=== PATIENT | female | born 1985 ===

== ENCOUNTER 2024-10-13 17:37 | Outpatient (REF) | payer MEDICARE, MEDICAID, SELFPAY ==
[2024-10-13 17:53] LABS: MANUAL DIFF FLAG NO
--- OUTSIDE RECORDS SUMMARY | 2024-10-13 17:56 | XMS_ITS | Clinical Summary ---
Author Organization [facility] Address [address] [place] [address] Care Team Providers Care Airport Planner Name Role Phone Jake Red MD Primary Care Provider Allergies Active Allergy Reactions Criticality Noted Date Comments Adhesive Rash Low 12/30/2018 Silk tape allergy. Paper tape is OK. Aspirin Other (see comments) 03/03/2013 Burning sensation Burning sensation burning sensation Cephalosporins Rash 03/28/2007 Haloperidol Delirium 11/07/2021 Iodinated Contrast Media Anaphylaxis High 10/05/2018 Flushing, warmth, hives. No anaphylaxis. Metoclopramide Anxiety,Other (see comments) 06/09/2010 REGLAN(METOCLOPRAMI DE RESIN): Feeling of apprehension REGLAN(METOCLOPRAMI DE RESIN): Feeling of apprehension Akathisia Oxycodone Nausea And Vomiting 10/22/2017 Peanut Anaphylaxis High 01/07/2006 Prochlorperazine Delirium,Anxiety,Ot her (see comments) 06/09/2010 COMPAZINE(PROCHLORP ERAZINE MESYLATE): Feeling of apprehension Other reaction(s): Feeling of apprehension COMPAZINE(PROCHLORP ERAZINE MESYLATE): Feeling of apprehension Akathisia TOLERATES PROMETHAZINE Metoclopramide Hcl Delirium 11/14/2023 Sodium Ferric Gluconate Complex Swelling High 10/26/2020 Pt had hand swelling and c/o chest pain with infusion Tree Nut Anaphylaxis High 06/12/2010 Tree Nuts Anaphylaxis High 06/17/2014 TREE NUTS 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 4 Active carvediloL (COREG) 6.25 mg tablet 6.25 mg by feeding tube route 2 times daily. 4 Active cloNIDine (CATAPRES-TTS) 0.3 mg/[address] 2 patches on the skin every 7 days. 4 Active cyclobenzaprin e (FLEXERIL) 10 mg tablet Take 10 mg by mouth 3 times daily as needed. 4 Active darbepoetin ravin-polysorba te (ARANESP) 200 mcg/mL injection Inject 200 mcg under the skin every 14 days. Last dose 11/12 4 Active EPINEPHrine (EPIPEN) 0.3 mg/0.3 mL injection syringe Inject 0.3 mg into the shoulder, thigh, or buttocks muscle as directed once daily as needed. 3 Active furosemide (LASIX) 10 mg/mL injection Infuse 10 mg intravenously daily as needed (weight gain). 4 Active gabapentin (NEURONTIN) 250 mg/5 mL solution Take 900 mg by j-tube 3 times a day. Active gentamicin 40 mg/mL injection Infuse intravenously once a day. For CVC 4 Active immune globulin, human 10% (10 g/100 mL) solution Infuse 25 g intravenously per week. mondays 3 Active montelukast (SINGULAIR) 10 mg tablet Take 10 mg by mouth nightly. 4 Active nortriptyline (PAMELOR) 50 mg capsule Take 50 mg by mouth nightly. 4 Active omalizumab 150 mg/mL syringe Inject 300 mg under the skin every 30 days. 4 Active ondansetron (ZOFRAN) 4 mg/2 mL injection Infuse 4 mg intravenously every 4 hours as needed for vomiting or nausea. 4 Active sulfamethoxazo le-trimethopri m (BACTRIM SS) 400-80 mg tablet 1 tablet by feeding tube route daily. 4 Active SUMAtriptan (IMITREX) 100 mg tablet 100 mg by j-tube route 2 times a day as needed for migraine. 4 Active traZODone (DESYREL) 100 mg tablet 200 mg by j-tube route nightly. 4 Active tiZANidine (ZANAFLEX) 4 mg tablet 8 mg by j-tube route once daily as needed for muscle spasms. 4 Active vancomycin 500 mg injection Infuse intravenously once a day. For cvc 4 Active venlafaxine (EFFEXOR) 75 mg tablet 75 mg by per J tube route 3 times daily. 4 Active verapamiL (CALAN) 40 mg tablet 40 mg by j-tube route 3 times daily. 4 Active albuterol 2.5 mg/0.5 mL (0.5%) nebulizer solution Inhale 2.5 mg by mouth 4 times a day as needed for wheezing or shortness of breath. Active NON FORMULARY Apply topically to the affected area 3 times a day. Captopril 1% topical solution 4-10 clicks Active busPIRone (BUSPAR) 10 mg tablet Take 20 mg by mouth 3 times a day. Active lisinopriL (PRINIVIL,ZEST RIL) 20 mg tablet Take 20 mg by mouth once a day. 4 Active micafungin 100 mg in 0.9% NaCl 100 mL Infuse 100 mg intravenously every 24 hours. 4 Active Active Problems Problem Noted Date Diagnosed Date Fungemia 11/16/2023 Assessment & Plan (11/24/2023 1:13 AM EDT): Admission blood cultures (11/13) with julieta dubliniensis in 1/4 bottles. No vegetations noted on TTE 11/20/23 with EF 39%. ID recommended reaching out to ophtho for endopthalmitis rule out; per ophtho, continue to monitor and re-engage them if she has vision changes. - See sepsis section On Transfer: - Consider ophtho consult for endophthalmitis rule out Assessment & Plan (11/23/2023 7:50 AM EDT): Admission blood cultures (11/13) now with yeast in 1/4 bottles. No vegetations noted on TTE 11/20/23 with EF 39% - See sepsis section - ID recommended reaching out to ophtho for endopthalmitis rule out; per ophtho, continue to monitor and re-engage them if she has vision changes Assessment & Plan (11/22/2023 6:52 PM EDT): Admission blood cultures (11/13) now with yeast in 1/4 bottles. No vegetations noted on TTE 11/20/23 with EF 39% - See sepsis section - ID recommended reaching out to ophtho for endopthalmitis rule out; per ophtho, continue to monitor and re-engage them if she has vision changes Assessment & Plan (11/21/2023 4:17 PM EDT): Admission blood cultures (11/13) now with yeast in 1/4 bottles. No vegetations noted on TTE 11/20/23 with EF 39% - See sepsis section - ID recommended reaching out to ophtho for endopthalmitis rule out; per ophtho, continue to monitor and re-engage them if she has vision changes Assessment & Plan (11/20/2023 6:31 PM EDT): Admission blood cultures (11/13) now with yeast in 1/4 bottles. No vegetations noted on TTE. - See sepsis section - ID recommended reaching out to ophtho for endopthalmitis rule out; per ophtho, continue to monitor and re-engage them if she has vision changes - TTE done 11/20/23 - EF 39% - No vegetations Assessment & Plan (11/19/2023 4:17 PM EDT): Admission blood cultures (11/13) now with yeast in 1/4 bottles. - See sepsis section - ID recommended reaching out to ophtho for endopthalmitis rule out; per ophtho, continue to monitor and re-engage them if she has vision changes Assessment & Plan (11/18/2023 9:24 PM EDT): Admission blood cultures (11/13) now with yeast in 1/4 bottles. - See sepsis section Assessment & Plan (11/17/2023 7:24 PM EDT): Admission blood cultures (11/13) now with yeast in 1/4 bottles. - See sepsis section Assessment & Plan (11/16/2023 8:10 PM EDT): Admission blood cultures (11/13) now with yeast in 1/4 bottles. - See sepsis section MEREDITH (dyspnea on exertion) 11/15/2023 Overview (11/15/2023): per note of Dr Meier on 05/18/2019 with the etiology possibly being multifactorial (deconditioning, LV dysfunction, anemia, recurrent infections, poor nutrition) . Gastroesophageal reflux disease 11/15/2023 Overview (11/15/2023): Occasional nighttime symptoms on PPI. Hypogammaglobulinemia 11/15/2023 Irritable bowel syndrome 11/15/2023 Overview (11/15/2023): multiple jejunostomy tube revisions for chronic bowel dysmotility, s/p ex lap for lysis of adhesions , revision J tube secondary to to leak extensive amounts of bile out of her jejunostomy tract. No c/o pain at site . PFO (patent foramen ovale) 11/15/2023 Overview (11/15/2023): PFO on echo 10/17/2018 Uses feeding tube 11/15/2023 Overview (11/15/2023): G-tube for venting, J-tube for medications. G-tube repeatedly falling out. Leaking around j-tube Suprapubic pain, acute 11/15/2023 Assessment & Plan (11/24/2023 1:13 AM EDT): Presents with acute pain just below the umbilicus that is severe. This is not her typical location for pain. CT A/P noted Trace hyperdense pelvic free fluid is suggestive of the presence of blood products and could reflect the sequela of ovarian cyst rupture however ultrasound did not reveal any indication of same. No other acute pathology on CT. Known GJ tube, J tube and occluded J tube in place. -Pain meds as above Assessment & Plan (11/23/2023 7:50 AM EDT): Presents with acute pain just below the umbilicus that is severe. This is not her typical location for pain. CT A/P noted Trace hyperdense pelvic free fluid is suggestive of the presence of blood products and could reflect the sequela of ovarian cyst rupture however ultrasound did not reveal any indication of same. No other acute pathology on CT. Known GJ tube, J tube and occluded J tube in place. -Pain meds as above Assessment & Plan (11/22/2023 6:52 PM EDT): Presents with acute pain just below the umbilicus that is severe. This is not her typical location for pain. CT A/P noted Trace hyperdense pelvic free fluid is suggestive of the presence of blood products and could reflect the sequela of ovarian cyst rupture however ultrasound did not reveal any indication of same. No other acute pathology on CT. Known GJ tube, J tube and occluded J tube in place. -Pain meds as above Assessment & Plan (11/21/2023 4:17 PM EDT): Presents with acute pain just below the umbilicus that is severe. This is not her typical location for pain. CT A/P noted Trace hyperdense pelvic free fluid is suggestive of the presence of blood products and could reflect the sequela of ovarian cyst rupture however ultrasound did not reveal any indication of same. No other acute pathology on CT. Known GJ tube, J tube and occluded J tube in place. -Pain meds as above Assessment & Plan (11/20/2023 6:31 PM EDT): Presents with acute pain just below the umbilicus that is severe. This is not her typical location for pain. CT A/P noted Trace hyperdense pelvic free fluid is suggestive of the presence of blood products and could reflect the sequela of ovarian cyst rupture however ultrasound did not reveal any indication of same. No other acute pathology on CT. Known GJ tube, J tube and occluded J tube in place. -Pain meds as above Assessment & Plan (11/19/2023 4:07 PM EDT): Presents with acute pain just below the umbilicus that is severe. This is not her typical location for pain. CT A/P noted Trace hyperdense pelvic free fluid is suggestive of the presence of blood products and could reflect the sequela of ovarian cyst rupture however ultrasound did not reveal any indication of same. No other acute pathology on CT. Known GJ tube, J tube and occluded J tube in place. -Pain meds as above Assessment & Plan (11/18/2023 9:24 PM EDT): Presents with acute pain just below the umbilicus that is severe. This is not her typical location for pain. CT A/P noted Trace hyperdense pelvic free fluid is suggestive of the presence of blood products and could reflect the sequela of ovarian cyst rupture however ultrasound did not reveal any indication of same. No other acute pathology on CT. Known GJ tube, J tube and occluded J tube in place. -Pain meds as above Assessment & Plan (11/17/2023 7:24 PM EDT): Presents with acute pain just below the umbilicus that is severe. This is not her typical location for pain. CT A/P noted Trace hyperdense pelvic free fluid is suggestive of the presence of blood products and could reflect the sequela of ovarian cyst rupture however ultrasound did not reveal any indication of same. No other acute pathology on CT. Known GJ tube, J tube and occluded J tube in place. -Pain meds as above Assessment & Plan (11/16/2023 8:10 PM EDT): Presents with acute pain just below the umbilicus that is severe. This is not her typical location for pain. CT A/P noted Trace hyperdense pelvic free fluid is suggestive of the presence of blood products and could reflect the sequela of ovarian cyst rupture however ultrasound did not reveal any indication of same. No other acute pathology on CT. Known GJ tube, J tube and occluded J tube in place. -Pain meds as above Hypomagnesemia 11/15/2023 Assessment & Plan (11/24/2023 1:13 AM EDT): Presents with nausea nd vomiting. Mag noted to be 1.0. Placed on telemetry and ordered for magnesium IV 4GM. - Daily Mg - Replete as needed Assessment & Plan (11/23/2023 7:50 AM EDT): Presents with nausea nd vomiting. Mag noted to be 1.0. Placed on telemetry and ordered for magnesium IV 4GM. - Daily Mg - Replete as needed Assessment & Plan (11/22/2023 6:52 PM EDT): Presents with nausea nd vomiting. Mag noted to be 1.0. Placed on telemetry and ordered for magnesium IV 4GM. - Daily Mg - Replete as needed Assessment & Plan (11/21/2023 4:17 PM EDT): Presents with nausea nd vomiting. Mag noted to be 1.0. Placed on telemetry and ordered for magnesium IV 4GM. - Daily Mg - Replete as needed Assessment & Plan (11/20/2023 6:31 PM EDT): Presents with nausea nd vomiting. Mag noted to be 1.0. Placed on telemetry and ordered for magnesium IV 4GM. - Daily Mg - Replete as needed Assessment & Plan (11/19/2023 4:07 PM EDT): Presents with nausea nd vomiting. Mag noted to be 1.0. Placed on telemetry and ordered for magnesium IV 4GM. - Daily Mg - Replete as needed Assessment & Plan (11/18/2023 9:24 PM EDT): Presents with nausea nd vomiting. Mag noted to be 1.0. Placed on telemetry and ordered for magnesium IV 4GM. - Daily Mg - Replete as needed Assessment & Plan (11/17/2023 7:24 PM EDT): Presents with nausea nd vomiting. Mag noted to be 1.0. Placed on telemetry and ordered for magnesium IV 4GM. Replete as needed Assessment & Plan (11/16/2023 8:10 PM EDT): Presents with nausea nd vomiting. Mag noted to be 1.0. Placed on telemetry and ordered for magnesium IV 4GM. Replete as needed Muscle spasm 11/15/2023 Assessment & Plan (11/24/2023 1:13 AM EDT): Hx of muscle spasms which the patient reports are worse when septic. Current regimen includes flexeril 10mg 3 times a day and tizanidine 4mg HS prn. Stable. Will continue home regimen. Assessment & Plan (11/23/2023 7:50 AM EDT): Hx of muscle spasms which the patient reports are worse when septic. Current regimen includes flexeril 10mg 3 times a day and tizanidine 4mg HS prn. Stable. Will continue home regimen. Assessment & Plan (11/22/2023 6:52 PM EDT): Hx of muscle spasms which the patient reports are worse when septic. Current regimen includes flexeril 10mg 3 times a day and tizanidine 4mg HS prn. Stable. Will continue home regimen. Assessment & Plan (11/21/2023 4:17 PM EDT): Hx of muscle spasms which the patient reports are worse when septic. Current regimen includes flexeril 10mg 3 times a day and tizanidine 4mg HS prn. Stable. Will continue home regimen. Assessment & Plan (11/20/2023 6:31 PM EDT): Hx of muscle spasms which the patient reports are worse when septic. Current regimen includes flexeril 10mg 3 times a day and tizanidine 4mg HS prn. Stable. Will continue home regimen. Assessment & Plan (11/19/2023 4:07 PM EDT): Hx of muscle spasms which the patient reports are worse when septic. Current regimen includes flexeril 10mg 3 times a day and tizanidine 4mg HS prn. Stable. Will continue home regimen. Assessment & Plan (11/18/2023 9:24 PM EDT): Hx of muscle spasms which the patient reports are worse when septic. Current regimen includes flexeril 10mg 3 times a day and tizanidine 4mg HS prn. Stable. Will continue home regimen. Assessment & Plan (11/17/2023 7:24 PM EDT): Hx of muscle spasms which the patient reports are worse when septic. Current regimen includes flexeril 10mg 3 times a day and tizanidine 4mg HS prn. Stable. Will continue home regimen. Assessment & Plan (11/16/2023 8:10 PM EDT): Hx of muscle spasms which the patient reports are worse when septic. Current regimen includes flexeril 10mg 3 times a day and tizanidine 4mg HS prn. Stable. Will continue home regimen. Fall 11/15/2023 Assessment & Plan (11/24/2023 1:13 AM EDT): Patient reports mechanical fall in the setting of weakness on the day or arrival. Fell down some stairs and sustained abrasions to the left knee and ankle. Imaging on arrival of the left knee reveal small joint effusion, left ankle xray without acute abnormality. Wound care nursing was consulted. Assessment & Plan (11/23/2023 7:50 AM EDT): Patient reports mechanical fall in the setting of weakness on the day or arrival. Fell down some stairs and sustained abrasions to the left knee and ankle. Imaging on arrival of the left knee reveal small joint effusion, left ankle xray without acute abnormality. -Wound care nursing. Assessment & Plan (11/22/2023 6:52 PM EDT): Patient reports mechanical fall in the setting of weakness on the day or arrival. Fell down some stairs and sustained abrasions to the left knee and ankle. Imaging on arrival of the left knee reveal small joint effusion, left ankle xray without acute abnormality. -Wound care nursing. Assessment & Plan (11/21/2023 4:17 PM EDT): Patient reports mechanical fall in the setting of weakness on the day or arrival. Fell down some stairs and sustained abrasions to the left knee and ankle. Imaging on arrival of the left knee reveal small joint effusion, left ankle xray without acute abnormality. -Wound care nursing. Assessment & Plan (11/20/2023 6:31 PM EDT): Patient reports mechanical fall in the setting of weakness on the day or arrival. Fell down some stairs and sustained abrasions to the left knee and ankle. Imaging on arrival of the left knee reveal small joint effusion, left ankle xray without acute abnormality. -Wound care nursing. Assessment & Plan (11/19/2023 4:07 PM EDT): Patient reports mechanical fall in the setting of weakness on the day or arrival. Fell down some stairs and sustained abrasions to the left knee and ankle. Imaging on arrival of the left knee reveal small joint effusion, left ankle xray without acute abnormality. -Wound care nursing. Assessment & Plan (11/18/2023 9:24 PM EDT): Patient reports mechanical fall in the setting of weakness on the day or arrival. Fell down some stairs and sustained abrasions to the left knee and ankle. Imaging on arrival of the left knee reveal small joint effusion, left ankle xray without acute abnormality. -Wound care nursing. Assessment & Plan (11/17/2023 7:24 PM EDT): Patient reports mechanical fall in the setting of weakness on the day or arrival. Fell down some stairs and sustained abrasions to the left knee and ankle. Imaging on arrival of the left knee reveal small joint effusion, left ankle xray without acute abnormality. -Wound care nursing. Assessment & Plan (11/16/2023 8:10 PM EDT): Patient reports mechanical fall in the setting of weakness on the day or arrival. Fell down some stairs and sustained abrasions to the left knee and ankle. Imaging on arrival of the left knee reveal small joint effusion, left ankle xray without acute abnormality. -Wound care nursing. Nausea & vomiting 10/15/2023 Overview (11/15/2023): Last Assessment & Plan: Presented as above. Reporting nausea, nonbloody emesis at home. Increased drainage around G and J tubes, less drainage after J-tube exchange. CTAP without acute abnormality. Labs notable for low K. Patient still reporting unable to tolerate POs, causing vomiting. - Appreciate Nutrition recs - Trend K and Mag, K replacement scale - Zofran, benadryl, phenergan PRN Assessment & Plan (11/24/2023 1:13 AM EDT): Hx of chronic nausea and vomiting for which she takes zofran IV at home and promethazine IM as needed. Currently with N/V in the setting of acute illness. Will continue home regimen. On Transfer: - Zofran 4mg IV q8h prn nausea - phenergan 25mg IM q4h prn nausea - Scopalamine patches q72h Assessment & Plan (11/23/2023 7:50 AM EDT): Hx of chronic nausea and vomiting for which she takes zofran IV at home and promethazine IM as needed. Currently with N/V in the setting of acute illness. Will continue home regimen. - Zofran 4mg IV q8h prn nausea - phenergan 25mg IM q4h prn nausea - Scopalamine patches q72h Assessment & Plan (11/22/2023 6:52 PM EDT): Hx of chronic nausea and vomiting for which she takes zofran IV at home and promethazine IM as needed. Currently with N/V in the setting of acute illness. Will continue home regimen. - Zofran 4mg IV q8h prn nausea - phenergan 25mg IM q4h prn nausea - Scopalamine patches q72h Assessment & Plan (11/21/2023 4:17 PM EDT): Hx of chronic nausea and vomiting for which she takes zofran IV at home and promethazine IM as needed. Currently with N/V in the setting of acute illness. Will continue home regimen. -Zofran 4mg IV q8h prn nausea -phenergan 25mg IM q4h prn nausea - Scopalamine patches q72h Assessment & Plan (11/20/2023 6:31 PM EDT): Hx of chronic nausea and vomiting for which she takes zofran IV at home and promethazine IM as needed. Currently with N/V in the setting of acute illness. Will continue home regimen. -Zofran 4mg IV q8h prn nausea -phenergan 25mg IM q4h prn nausea - Scopalamine patches q72h Assessment & Plan (11/19/2023 4:07 PM EDT): Hx of chronic nausea and vomiting for which she takes zofran IV at home and promethazine IM as needed. Currently with N/V in the setting of acute illness. Will continue home regimen. -Zofran 4mg IV q8h prn nausea -phenergan 25mg IM q4h prn nausea - Scopalamine patches q72h Assessment & Plan (11/18/2023 9:24 PM EDT): Hx of chronic nausea and vomiting for which she takes zofran IV at home and promethazine IM as needed. Currently with N/V in the setting of acute illness. Will continue home regimen. -Zofran 4mg IV q8h prn nausea -phenergan 25mg IM q4h prn nausea - Scopalamine patches q72h Assessment & Plan (11/17/2023 7:24 PM EDT): Hx of chronic nausea and vomiting for which she takes zofran IV at home and promethazine IM as needed. Currently with N/V in the setting of acute illness. Will continue home regimen. -Zofran 4mg IV q8h prn nausea -phenergan 25mg IM q4h prn nausea Assessment & Plan (11/16/2023 8:10 PM EDT): Hx of chronic nausea and vomiting for which she takes zofran IV at home and promethazine IM as needed. Currently with N/V in the setting of acute illness. Will continue home regimen. -Zofran 4mg IV q8h prn nausea -phenergan 25mg IM q4h prn nausea Sepsis 09/17/2023 Overview (11/15/2023): Last Assessment & Plan: #Hypotension #Lactic Acidosis #Polymicrobial bacteremia Patient presented after developing nausea/vomiting and redness at the site of her central line. BP 76/51 on admission. Lactate was elevated on admission, with some improvement after 2.5L of IVF in the ED (4.6->3.2). UA was negative. CT PA and CXR were unrevealing. Found to have polymicrobial bacteremia (Enterococcus, Serratia, Proteus, Klebsiella) most likely from line infection contaminated with GI contents. BP improved after steroids and aggressive IVF (s/p 100mg hydrocort + 75mg q6h x24h). Infectious disease consulted. Discussed with IR and there are no alternative sites for new CVC placement. They also do not recommend line exchange at this time due to complexity. They recommended trying to treat through the line infection and using line exchange over wire as last resort. Treated with cefepime and vancomycin (09/16 - 09/21) and cultures cleared, then switched to CTX and daptomycin on 09/21. On 09/22, BILLBOARD POSTER called for hypotension to 70s/40s, tachycardia to 140s, and febrile to 102F. CBC with worsening leukocytosis, lactate elevated to 5.7, Cr doubled. Patient moaning with diffuse discomfort, especially in the abdomen. BP improved s/p 3L IVF and 100mg hydrocort. Discussed with ID and switched antibiotics back to cefepime and vancomycin, although biggest concern is recurrent bacteremia due to indwelling line. CXR, KUB, and non-con CT C/A/P without alternative infectious explanation or evidence of bowel perforation, ischemic bowel. Blood cultures growing multiple different pathogens, including pseudomonas, enterococcus, stenotrophomonas, julieta albicans and julieta glabrata. - Appreciate infectious disease recommendations - continue bactrim SS tab daily (per ID, likely to continue chronically) - Continue cefepime, micafungin 100mg q24h, and daptomycin 450mg q24h. End date will be 10/08/23 (14 days from first negative blood cultures on 09/24) - Continue gentamicin locks - Restarted TPN - will coordinate with [facility] (TPN and IV abx) for discharge 09/30 (tomorrow) Assessment & Plan (11/24/2023 1:13 AM EDT): Hx of recurrent CLABSI, most recent in August and Sep on 2023. Completed treatment with Dapto, cefepime and micafungin at that time and has transitioned to daily bactrim (due to persistent stenotrophomonas in Bcx) as well as Alternating vanco and gentamicin CVC locks. Presents with headaches, nausea, vomiting and muscle spasms that are c/w usual bacteremia. Mildly hypotensive on arrival with BP 85/51. No fever or leukocytosis however 14% bandemia of diff. There is concern that bandemia may actually be from Aranesp that she received 24 hours prior to arrival due to chronic pancytopenia. 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 Initially given vanco/zosyn but given her prior resistant organisms will gave daptomycin and consulted ID for further recs. Previously on Cefepime and daptomycin which were discontinued per ID recs. Patient found to have fungemia and was treated with micafungin (D1: 11/15) SIRS Criteria Patient met the following SIRS Criteria: >10% bandemia Sepsis Criteria Sepsis was present on admission. Source of infection is unknown but infection is suspected. Blood cultures were drawn prior to antibiotics given. Initial lactic acid was drawn and value was less than 2 so no repeat was required. Patient was ordered the following Antibiotics: Vancomycin and Zosyn Full Sepsis bolus given. Patient received 2 Liters of fluid bolus. Goal: 1.6 Liters (30ml/kg). 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 Per ID, line will need to be removed/replaced. Given line was placed at [facility] and pt receives all care there, pt was accepted for transfer to [facility] on 11/15 pending bed availability. - IR at [facility] Phone Call 11/22/23: At this time they recommend removing the translumbar line (which has only been in place for ~1 month) and placing either a tunneled femoral line (preferred) or a temporary femoral line. 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 Completed treatment with Dapto, cefepime and micafungin at that time and has transitioned to daily bactrim (due to persistent stenotrophomonas in Bcx) as well as Alternating vanco and gentamicin CVC locks. Presents with headaches, nausea, vomiting and muscle spasms that are c/w usual bacteremia. Mildly hypotensive on arrival with BP 85/51. No fever or leukocytosis however 14% bandemia of diff. There is concern that bandemia may actually be from Aranesp that she received 24 hours prior to arrival due to chronic pancytopenia. 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 Initially given vanco/zosyn but given her prior resistant organisms will gave daptomycin and consulted ID for further recs. Previously on Cefepime and daptomycin which were discontinued per ID recs. Patient found to have fungemia and was treated with micafungin (D1: 11/15) SIRS Criteria Patient met the following SIRS Criteria: >10% bandemia Sepsis Criteria Sepsis was present on admission. Source of infection is unknown but infection is suspected. Blood cultures were drawn prior to antibiotics given. Initial lactic acid was drawn and value was less than 2 so no repeat was required. Patient was ordered the following Antibiotics: Vancomycin and Zosyn Full Sepsis bolus given. Patient received 2 Liters of fluid bolus. Goal: 1.6 Liters (30ml/kg). 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 Per ID, line will need to be removed/replaced. Given line was placed at [facility] and pt receives all care there, pt was accepted for transfer to [facility] on 11/15 pending bed availability. - IR at [facility] Phone Call 11/22/23: At this time they recommend removing the translumbar line (which has only been in place for ~1 month) and placing either a tunneled femoral line (preferred) or a temporary femoral line. 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 Completed treatment with Dapto, cefepime and micafungin at that time and has transitioned to daily bactrim (due to persistent stenotrophomonas in Bcx) as well as Alternating vanco and gentamicin CVC locks. Presents with headaches, nausea, vomiting and muscle spasms that are c/w usual bacteremia. Mildly hypotensive on arrival with BP 85/51. No fever or leukocytosis however 14% bandemia of diff. There is concern that bandemia may actually be from Aranesp that she received 24 hours prior to arrival due to chronic pancytopenia. 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 Initially given vanco/zosyn but given her prior resistant organisms will gave daptomycin and consulted ID for further recs. Previously on Cefepime and daptomycin which were discontinued per ID recs. Patient found to have fungemia and was treated with micafungin (D1: 11/15) SIRS Criteria Patient met the following SIRS Criteria: >10% bandemia Sepsis Criteria Sepsis was present on admission. Source of infection is unknown but infection is suspected. Blood cultures were drawn prior to antibiotics given. Initial lactic acid was drawn and value was less than 2 so no repeat was required. Patient was ordered the following Antibiotics: Vancomycin and Zosyn Full Sepsis bolus given. Patient received 2 Liters of fluid bolus. Goal: 1.6 Liters (30ml/kg). 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 Per ID, line will need to be removed/replaced. Given line was placed at [facility] and pt receives all care there, pt was accepted for transfer to [facility] [place] on 11/15 pending bed availability. - IR at [facility] Phone Call 11/22/23: At this time they recommend removing the translumbar line (which has only been in place for ~1 month) and placing either a tunneled femoral line (preferred) or a temporary femoral line. 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 Completed treatment with Dapto, cefepime and micafungin at that time and has transitioned to daily bactrim (due to persistent stenotrophomonas in Bcx) as well as Alternating vanco and gentamicin CVC locks. Presents with headaches, nausea, vomiting and muscle spasms that are c/w usual bacteremia. Mildly hypotensive on arrival with BP 85/51. No fever or leukocytosis however 14% bandemia of diff. There is concern that bandemia may actually be from Aranesp that she received 24 hours prior to arrival due to chronic pancytopenia. 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 Initially given vanco/zosyn but given her prior resistant organisms will gave daptomycin and consulted ID for further recs. Previously on Cefepime and daptomycin which were discontinued per ID recs. Patient found to have fungemia and was treated with micafungin (D1: 11/15) SIRS Criteria Patient met the following SIRS Criteria: >10% bandemia Sepsis Criteria Sepsis was present on admission. Source of infection is unknown but infection is suspected. Blood cultures were drawn prior to antibiotics given. Initial lactic acid was drawn and value was less than 2 so no repeat was required. Patient was ordered the following Antibiotics: Vancomycin and Zosyn Full Sepsis bolus given. Patient received 2 Liters of fluid bolus. Goal: 1.6 Liters (30ml/kg). 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 Per ID, line will need to be removed/replaced. Given line was placed at [facility] [place] and pt receives all care there, pt was accepted for transfer to [facility] [place] on 11/15 pending bed availability. Assessment & Plan (11/20/2023 6:31 PM EDT): Hx of recurrent CLABSI, most recent in August and Sep2023. Completed treatment with Dapto, cefepime and micafungin at that time and has transitioned to daily bactrim (due to persistent stenotrophomonas in Bcx) as well as Alternating vanco and gentamicin CVC locks. Presents with headaches, nausea, vomiting and muscle spasms that are c/w usual bacteremia. Mildly hypotensive on arrival with BP 85/51. No fever or leukocytosis however 14% bandemia of diff. There is concern that bandemia may actually be from Aranesp that she received 24 hours prior to arrival due to chronic pancytopenia. 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 Initially given vanco/zosyn but given her prior resistant organisms will gave daptomycin and consulted ID for further recs. Previously on Cefepime and daptomycin which were discontinued per ID recs. Patient found to have fungemia and was treated with micafungin (D1: 11/15) SIRS Criteria Patient met the following SIRS Criteria: >10% bandemia Sepsis Criteria Sepsis was present on admission. Source of infection is unknown but infection is suspected. Blood cultures were drawn prior to antibiotics given. Initial lactic acid was drawn and value was less than 2 so no repeat was required. Patient was ordered the following Antibiotics: Vancomycin and Zosyn Full Sepsis bolus given. Patient received 2 Liters of fluid bolus. Goal: 1.6 Liters (30ml/kg). 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 Per ID, line will need to be removed/replaced. Given line was placed at [facility] and pt receives all care there, pt was accepted for transfer to [facility] [place] on 11/15 pending bed availability. Assessment & Plan (11/19/2023 4:07 PM EDT): Hx of recurrent CLABSI, most recent in August and Sep2023. Completed treatment with Dapto, cefepime and micafungin at that time and has transitioned to daily bactrim (due to persistent stenotrophomonas in Bcx) as well as Alternating vanco and gentamicin CVC locks. Presents with headaches, nausea, vomiting and muscle spasms that are c/w usual bacteremia. Mildly hypotensive on arrival with BP 85/51. No fever or leukocytosis however 14% bandemia of diff. There is concern that bandemia may actually be from Aranesp that she received 24 hours prior to arrival due to chronic pancytopenia. 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 Initially given vanco/zosyn but given her prior resistant organisms will gave daptomycin and consulted ID for further recs. Previously on Cefepime and daptomycin which were discontinued per ID recs. Patient found to have fungemia and was treated with micafungin (D1: 11/15) SIRS Criteria Patient met the following SIRS Criteria: >10% bandemia Sepsis Criteria Sepsis was present on admission. Source of infection is unknown but infection is suspected. Blood cultures were drawn prior to antibiotics given. Initial lactic acid was drawn and value was less than 2 so no repeat was required. Patient was ordered the following Antibiotics: Vancomycin and Zosyn Full Sepsis bolus given. Patient received 2 Liters of fluid bolus. Goal: 1.6 Liters (30ml/kg). 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 Per ID, line will need to be removed/replaced. Given line was placed at [facility] and pt receives all care there, pt was accepted for transfer to [facility] on 11/15 pending bed availability. 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 Completed treatment with Dapto, cefepime and micafungin at that time and has transitioned to daily bactrim (due to persistent stenotrophomonas in Bcx) as well as Alternating vanco and gentamicin CVC locks. Presents with headaches, nausea, vomiting and muscle spasms that are c/w usual bacteremia. Mildly hypotensive on arrival with BP 85/51. No fever or leukocytosis however 14% bandemia of diff. There is concern that bandemia may actually be from Aranesp that she received 24 hours prior to arrival due to chronic pancytopenia. 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 Initially given vanco/zosyn but given her prior resistant organisms will gave daptomycin and consulted ID for further recs. Previously on Cefepime and daptomycin which were discontinued per ID recs. Patient found to have fungemia and was treated with micafungin (D1: 11/15) SIRS Criteria Patient met the following SIRS Criteria: >10% bandemia Sepsis Criteria Sepsis was present on admission. Source of infection is unknown but infection is suspected. Blood cultures were drawn prior to antibiotics given. Initial lactic acid was drawn and value was less than 2 so no repeat was required. Patient was ordered the following Antibiotics: Vancomycin and Zosyn Full Sepsis bolus given. Patient received 2 Liters of fluid bolus. Goal: 1.6 Liters (30ml/kg). 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 Per ID, line will need to be removed/replaced. Given line was placed at [facility] [place] and pt receives all care there, pt was accepted for transfer to [facility] on 11/15 pending bed availability. 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 Completed treatment with Dapto, cefepime and micafungin at that time and has transitioned to daily bactrim (due to persistent stenotrophomonas in Bcx) as well as Alternating vanco and gentamicin CVC locks. Presents with headaches, nausea, vomiting and muscle spasms that are c/w usual bacteremia. Mildly hypotensive on arrival with BP 85/51. No fever or leukocytosis however 14% bandemia of diff. There is concern that bandemia may actually be from Aranesp that she received 24 hours prior to arrival due to chronic pancytopenia. 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 Initially given vanco/zosyn but given her prior resistant organisms will give a dose of daptomycin and consult ID for further recs. Patient growing fungus in blood, awaiting speciation. SIRS Criteria Patient met the following SIRS Criteria: >10% bandemia Sepsis Criteria Sepsis was present on admission. Source of infection is unknown but infection is suspected. Blood cultures were drawn prior to antibiotics given. Initial lactic acid was drawn and value was less than 2 so no repeat was required. Patient was ordered the following Antibiotics: Vancomycin and Zosyn Full Sepsis bolus given. Patient received 2 Liters of fluid bolus. Goal: 1.6 Liters (30ml/kg). 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 Per ID, line will need to be removed/replaced. Given line was placed at [facility] and pt receives all care there, pt was accepted for transfer to [facility] on 11/15 pending bed availability. 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 Completed treatment with Dapto, cefepime and micafungin at that time and has transitioned to daily bactrim (due to persistent stenotrophomonas in Bcx) as well as Alternating vanco and gentamicin CVC locks. Presents with headaches, nausea, vomiting and muscle spasms that are c/w usual bacteremia. Mildly hypotensive on arrival with BP 85/51. No fever or leukocytosis however 14% bandemia of diff. There is concern that bandemia may actually be from Aranesp that she received 24 hours prior to arrival due to chronic pancytopenia. 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 Initially given vanco/zosyn but given her prior resistant organisms will Give a dose of daptomycin and consult ID for further recs. SIRS Criteria Patient met the following SIRS Criteria: >10% bandemia Sepsis Criteria Sepsis was present on admission. Source of infection is unknown but infection is suspected. Blood cultures were drawn prior to antibiotics given. Initial lactic acid was drawn and value was less than 2 so no repeat was required. Patient was ordered the following Antibiotics: Vancomycin and Zosyn Full Sepsis bolus given. Patient received 2 Liters of fluid bolus. Goal: 1.6 Liters (30ml/kg). 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 Per ID, line will need to be removed/replaced. Given line was placed at [facility] and pt receives all care there, pt was accepted for transfer to [facility] on 11/15 pending bed availability. - Follow up blood cultures and fungal blood cultures Irritant contact dermatitis due to chemical 03/29 Anxiety 03/29/2021 Overview (11/15/2023): Last Assessment & Plan: Patient reported having anxiety iso SOB while ambulating in the morning of 10/15, became hypertensive and tachycardic. Responded well to 0.5 mg ativan IV. Recently receiving ativan once daily while we were holding her buspar. - Resumed Buspar as GJ replaced - Continue 0.5 mg IV ativan q6 - Continue clonidine patches Malfunction of gastrostomy tube 12/19/2020 Overview (11/15/2023): Last Assessment & Plan: #GJ tube dysfunction Patient complains of leaking around the GJ tube site. Physical examination showed the GJ tube was loose but not dislodged. CT scan showed asymmetry in GJ tube balloon. Now s/p GJ exchange by IR 01/08/23 although continuing to leak. Per IR, leakage will continue as tract larger than tube size, and only way to stop leakage would be to remove GJ and allow tract to complete heal, then place a new GJ at a different site which is not recommended by General Surgery (Sourav) at this time. Required contrast allergy protocol. - resumed TF, meds via G - Ostomy/Wound RN recs appreciated, recs as follows 1. Wash wound with NS/warm water. Pat dry. 2. Treat peritubular skin with miconazole powder and spray: apply miconazole 2% powder to areas of erythema on peritubular skin, brush off excess and apply No sting barrier spray (PS# [id number]) over area to seal in powder. Let dry 3. Use single piece of split gauze underneath bumper or 4x4 drawtex (PS #[id number], ordered) dressing cut in a drain sponge fashion to absorb drainage from GJ-tube insertion site 4. Change daily and PRN Asthma 09/17/2018 Overview (11/15/2023): Malnutrition 09/17/2018 Overview (11/15/2023): Last Assessment & Plan: TPN dependent with gastroparesis. - appreciate nutrition recommendations - continue TPN - Mg, K, Phos; replete prn Moderate protein-calorie malnutrition 08/28/2018 Overview (11/15/2023): Last Assessment & Plan: - appreciate nutrition recommendations - continue TPN Assessment & Plan (11/24/2023 1:13 AM EDT): Hx of moderate protein calorie malnutrition in the setting of severe gastroparesis with resultant central line for TPN. Presents around baseline weight. Notes nausea and vomiting. Given IV hydration and will consult dietitian for TPN recs. TPN was held iso fungemia. On 11/22/23 concern for malnutrition was significantly high and TPN was started; ID said this is not recommended however PIV access was not successful with [employer] on multiple attempts and the patient herself noted that [employer] at [facility] is also not able to get PIV access when she is there. Risks and benefits of both using the translumbar line iso fungemia as well as those of malnutrition were discussed with the patient and ultimately TPN was initiated on the evening of 11/21. However, these were stopped shortly after on the morning of 11/22. On Transfer: -Continue on 1/2 NS while NPO and without TPN - Consider resuming TPN when there is clean access Assessment & Plan (11/23/2023 7:50 AM EDT): Hx of moderate protein calorie malnutrition in the setting of severe gastroparesis with resultant central line for TPN. Presents around baseline weight. Notes nausea and vomiting. Given IV hydration and will consult dietitian for TPN recs. TPN was held iso fungemia. On 11/22/23 concern for malnutrition was significantly high and TPN was started; ID said this is not recommended however PIV access was not successful with [employer] on multiple attempts and the patient herself noted that [employer] at [facility] is also not able to get PIV access when she is there. Risks and benefits of both using the translumbar line iso fungemia as well as those of malnutrition were discussed with the patient and ultimately TPN was initiated. -TPN started 11/22/23 - Watch for refeeding syndrome - Previously held d/t fungemia -Currently on 02/26 NS Assessment & Plan (11/22/2023 6:52 PM EDT): Hx of moderate protein calorie malnutrition in the setting of severe gastroparesis with resultant central line for TPN. Presents around baseline weight. Notes nausea and vomiting. Given IV hydration and will consult dietitian for TPN recs. TPN was held iso fungemia. On 11/22/23 concern for malnutrition was significantly high and TPN was started; ID said this is not recommended however PIV access was not successful with [employer] on multiple attempts and the patient herself noted that [employer] at [facility] is also not able to get PIV access when she is there. Risks and benefits of both using the translumbar line iso fungemia as well as those of malnutrition were discussed with the patient and ultimately TPN was initiated. -TPN started 11/22/23 - Watch for refeeding syndrome - Previously held d/t fungemia -Currently on 02/26 NS Assessment & Plan (11/21/2023 4:17 PM EDT): Hx of moderate protein calorie malnutrition in the setting of severe gastroparesis with resultant central line for TPN. Presents around baseline weight. Notes nausea and vomiting. Given IV hydration and will consult dietitian for TPN recs. TPN was held iso fungemia until it was cleared by ID and RD 11/20/23. -Hold TPN in setting of fungemia - Per RD note per ID, TPN may be resumed since repeat blood culture NGTD and now that central line has been exchanged if not otherwise contraindicated - [employer] consulted 11/21/23 - Patient has poor peripheral access. If successful, can begin PPN -Currently on 02/26 NS Assessment & Plan (11/20/2023 6:31 PM EDT): Hx of moderate protein calorie malnutrition in the setting of severe gastroparesis with resultant central line for TPN. Presents around baseline weight. Notes nausea and vomiting. Given IV hydration and will consult dietitian for TPN recs. TPN was held iso fungemia until it was cleared by ID and RD 11/20/23. -Hold TPN in setting of fungemia - Start TPN 11/20 -Currently on 02/26 NS Assessment & Plan (11/19/2023 4:07 PM EDT): Hx of moderate protein calorie malnutrition in the setting of severe gastroparesis with resultant central line for TPN. Presents around baseline weight. Notes nausea and vomiting. Given IV hydration and will consult dietitian for TPN recs. -Hold TPN in setting of fungemia -Currently on 02/26 NS Assessment & Plan (11/18/2023 9:24 PM EDT): Hx of moderate protein calorie malnutrition in the setting of severe gastroparesis with resultant central line for TPN. Presents around baseline weight. Notes nausea and vomiting. Given IV hydration and will consult dietitian for TPN recs. -Hold TPN in setting of fungemia -Currently on 02/26 NS Assessment & Plan (11/17/2023 7:24 PM EDT): Hx of moderate protein calorie malnutrition in the setting of severe gastroparesis with resultant central line for TPN. Presents around baseline weight. Notes nausea and vomiting. Given IV hydration and will consult dietitian for TPN recs. -Hold TPN in setting of fungemia -Currently on 02/26 NS Assessment & Plan (11/16/2023 8:10 PM EDT): Hx of moderate protein calorie malnutrition in the setting of severe gastroparesis with resultant central line for TPN. Presents around baseline weight. Notes nausea and vomiting. Given IV hydration and will consult dietitian for TPN recs. -Hold TPN in setting of fungemia Gastrojejunostomy tube status 06/02/2018 Chronic, continuous use of opioids 04/24/2018 Excoriation of periwound skin 01/07/2018 Pancytopenia 11/19/2017 Overview (11/15/2023): Last Assessment & Plan: Likely worsened iso active infection. During this admission H:H appeared stable until slight drop in Hgb 10.7=> 9.0 iso of CVC line exchange 10/16. Outpatient heme confirms she receives darbepoetin every 2 weeks (last dose 09/29) and ferumoxytol every 2 weeks (not on inpatient formulary). She also receives frequent blood transfusions, 2 units for HCT <25 and 1 unit for HCT 25-30. Transfused 1U pRBCs. - Monitor CBC w/ diff - Check repeat type and screen - S/p darbepoetin x 1 per outpatient cross tie maker recs (last received 09/29) - Ferumoxytol not on formulary (receives every 2 weeks) Assessment & Plan (11/24/2023 1:13 AM EDT): Hx of pancytopenia. She receives darbopoetin (aranesp) and Feraheme every two weeks. Last dose on 11/12. She also receives RBC when Hct drops <24%. Received 2u RBC on 11/12 for anemia. Unclear if present bandemia is related to Aranesp or active infection. Will check CB with diff daily and monitor for worsening pancytopenia in the setting of infection. -Daily CBC - If leukopenia continues, plan to consult ID or Heme/Onc - Plan as per CVID On Transfer: - Consider resuming darbopoetin (aranesp) and Feraheme q2wks (LD 11/12) Assessment & Plan (11/23/2023 7:50 AM EDT): Hx of pancytopenia. She receives darbopoetin (aranesp) and Feraheme every two weeks. Last dose on 11/12. She also receives RBC when Hct drops <24%. Received 2u RBC on 11/12 for anemia. Unclear if present bandemia is related to Aranesp or active infection. Will check CB with diff daily and monitor for worsening pancytopenia in the setting of infection. -Daily CBC - If leukopenia continues, plan to consult ID or Heme/Onc - Plan as per CVID Assessment & Plan (11/22/2023 6:52 PM EDT): Hx of pancytopenia. She receives darbopoetin (aranesp) and Feraheme every two weeks. Last dose on 11/12. She also receives RBC when Hct drops <24%. Received 2u RBC on 11/12 for anemia. Unclear if present bandemia is related to Aranesp or active infection. Will check CB with diff daily and monitor for worsening pancytopenia in the setting of infection. -Daily CBC - If leukopenia continues, plan to consult ID or Heme/Onc - Plan as per CVID Assessment & Plan (11/21/2023 4:17 PM EDT): Hx of pancytopenia. She receives darbopoetin (aranesp) and Feraheme every two weeks. Last dose on 11/12. She also receives RBC when Hct drops <24%. Received 2u RBC on 11/12 for anemia. Unclear if present bandemia is related to Aranesp or active infection. Will check CB with diff daily and monitor for worsening pancytopenia in the setting of infection. -Daily CBC - If leukopenia continues, plan to consult ID or Heme/Onc - Plan as per CVID Assessment & Plan (11/20/2023 6:31 PM EDT): Hx of pancytopenia. She receives darbopoetin (aranesp) and Feraheme every two weeks. Last dose on 11/12. She also receives RBC when Hct drops <24%. Received 2u RBC on 11/12 for anemia. Unclear if present bandemia is related to Aranesp or active infection. Will check CB with diff daily and monitor for worsening pancytopenia in the setting of infection. -Daily CBC - Plan as per CVID Assessment & Plan (11/19/2023 4:07 PM EDT): Hx of pancytopenia. She receives darbopoetin (aranesp) and Feraheme every two weeks. Last dose on 11/12. She also receives RBC when Hct drops <24%. Received 2u RBC on 11/12 for anemia. Unclear if present bandemia is related to Aranesp or active infection. Will check CB with diff daily and monitor for worsening pancytopenia in the setting of infection. -Daily CBC - Plan as per CVID Assessment & Plan (11/18/2023 9:24 PM EDT): Hx of pancytopenia. She receives darbopoetin (aranesp) and Feraheme every two weeks. Last dose on 11/12. She also receives RBC when Hct drops <24%. Received 2u RBC on 11/12 for anemia. Unclear if present bandemia is related to Aranesp or active infection. Will check CB with diff daily and monitor for worsening pancytopenia in the setting of infection. -Daily CBC Assessment & Plan (11/17/2023 7:24 PM EDT): Hx of pancytopenia. She receives darbopoetin (aranesp) and Feraheme every two weeks. Last dose on 11/12. She also receives RBC when Hct drops <24%. Received 2u RBC on 11/12 for anemia. Unclear if present bandemia is related to Aranesp or active infection. Will check CB with diff daily and monitor for worsening pancytopenia in the setting of infection. -Daily CBC Assessment & Plan (11/16/2023 8:10 PM EDT): Hx of pancytopenia. She receives darbopoetin (aranesp) and Feraheme every two weeks. Last dose on 11/12. She also receives RBC when Hct drops <24%. Received 2u RBC on 11/12 for anemia. Unclear if present bandemia is related to Aranesp or active infection. Will check CB with diff daily and monitor for worsening pancytopenia in the setting of infection. -Daily CBC Migraine headache 07/02/2016 Overview (11/15/2023): Last Assessment & Plan: Renew Imitrex. FU with [facility]. Continue botox chronic daily migraine headaches, intractable, with status migrainous; receives Botox injections for migraine headaches, Hypertension 07/01/2016 Overview (11/15/2023): Last Assessment & Plan: - continue lisinopril - hold clonidine given acute infection Assessment & Plan (11/24/2023 1:13 AM EDT): Home meds: verapamil 40mg 3 times a day, Clonidine patch 0.3mg-two patches TD weekly, carvedilol 6.25mg BID, and captopril 1% topical solution (4-10 clicks daily) Hx of resistant Htn managed . Presented hypotensive therefore clonidine patch held as well as captopril solution as it is non formulary. BP improved and carvedilol and clonidine patches were resumed.Verapamil was not restarted as BP was well controlled on clonidine patches alone and did not want to risk hypotension iso fungemia. On Transfer: - cont carvedilol - Cont clonidine patches (D1: 11/19) Assessment & Plan (11/23/2023 7:50 AM EDT): Home meds: verapamil 40mg 3 times a day, Clonidine patch 0.3mg-two patches TD weekly, carvedilol 6.25mg BID, and captopril 1% topical solution (4-10 clicks daily) Hx of resistant Htn managed on . Presented hypotensive therefore clonidine patch held as well as captopril solution as it is non formulary. Consider transitioning back to lisinopril while inpatient if BP improves. -cont carvedilol - Cont clonidine patches (D1: 11/19) - Patient confirmed she is taking verapamil - will plan to start if BP remains elevated - Holding as of 11/21/23 due to recent initiation of clonidine patches and concern for hypotension with multiple agents - Hold home captopril - non formulary Assessment & Plan (11/22/2023 6:52 PM EDT): Home meds: verapamil 40mg 3 times a day, Clonidine patch 0.3mg-two patches TD weekly, carvedilol 6.25mg BID, and captopril 1% topical solution (4-10 clicks daily) Hx of resistant Htn managed on . Presented hypotensive therefore clonidine patch held as well as captopril solution as it is non formulary. Consider transitioning back to lisinopril while inpatient if BP improves. -cont carvedilol - Cont clonidine patches (D1: 11/19) - Patient confirmed she is taking verapamil - will plan to start if BP remains elevated - Holding as of 11/21/23 due to recent initiation of clonidine patches and concern for hypotension with multiple agents - Hold home captopril - non formulary Assessment & Plan (11/21/2023 4:17 PM EDT): Hx of resistant Htn managed on verapamil 40mg 3 times a day, Clonidine patch 0.3mg-two patches TD weekly, carvedilol 6.25mg BID and captopril 1% topical solution (4-10 clicks daily). Presented hypotensive therefore clonidine patch held as well as captopril solution as it is non formulary. Consider transitioning back to lisinopril while inpatient if BP improves. -cont carvedilol - Cont clonidine patches (D1: 11/19) - Patient confirmed she is taking verapamil - will plan to start if BP remains elevated - Holding as of 11/21/23 due to recent initiation of clonidine patches and concern for hypotension with multiple agents - Hold home captopril - non formulary Assessment & Plan (11/20/2023 6:31 PM EDT): Hx of resistant Htn managed on verapamil 40mg 3 times a day, Clonidine patch 0.3mg-two patches TD weekly, carvedilol 6.25mg BID and captopril 1% topical solution (4-10 clicks daily). Presented hypotensive therefore clonidine patch held as well as captopril solution as it is non formulary. Consider transitioning back to lisinopril while inpatient if BP improves. -cont carvedilol, clonidine patches - Hold captopril Assessment & Plan (11/19/2023 4:07 PM EDT): Hx of resistant Htn managed on verapamil 40mg 3 times a day, Clonidine patch 0.3mg-two patches TD weekly, carvedilol 6.25mg BID and captopril 1% topical solution (4-10 clicks daily). Presented hypotensive therefore clonidine patch held as well as captopril solution as it is non formulary. Consider transitioning back to lisinopril while inpatient if BP improves. -cont carvedilol, clonidine patches - Holdcaptopril Assessment & Plan (11/18/2023 9:24 PM EDT): Hx of resistant Htn managed on verapamil 40mg 3 times a day, Clonidine patch 0.3mg-two patches TD weekly, carvedilol 6.25mg BID and captopril 1% topical solution (4-10 clicks daily). Presented hypotensive therefore clonidine patch held as well as captopril solution as it is non formulary. Consider transitioning back to lisinopril while inpatient if BP improves. -cont carvedilol -hold clonidine and captopril Assessment & Plan (11/17/2023 7:24 PM EDT): Hx of resistant Htn managed on verapamil 40mg 3 times a day, Clonidine patch 0.3mg-two patches TD weekly, carvedilol 6.25mg BID and captopril 1% topical solution (4-10 clicks daily). Presented hypotensive therefore clonidine patch held as well as captopril solution as it is non formulary. Consider transitioning back to lisinopril while inpatient if BP improves. -cont carvedilol -hold clonidine and captopril Assessment & Plan (11/16/2023 8:10 PM EDT): Hx of resistant Htn managed on verapamil 40mg 3 times a day, Clonidine patch 0.3mg-two patches TD weekly, carvedilol 6.25mg BID and captopril 1% topical solution (4-10 clicks daily). Presented hypotensive therefore clonidine patch held as well as captopril solution as it is non formulary. Consider transitioning back to lisinopril while inpatient if BP improves. -cont carvedilol -hold clonidine and captopril Abnormal LFTs 07/01/2016 Overview (11/15/2023): Last Assessment & Plan: Patient presented with transaminitis (AST 1823, AST 1326, Alk phos 1.1, D bili 1.1, T bili 1.1). CT AP showed cholecystectomy and no obstruction of the biliary tree. R factor consistent with hepatocelluar injury. Acute hepatitis panel was negative. May be related to on-going COVID infection (commonly AST>ALT) vs end organ damage iso sepsis. - Trend LFTs Last Assessment & Plan: Chronically elevated Alk Phos. Uptrending transaminases Most likely drug-induced (propofol?) vs hemodynamic given pattern of rise after procedures + GA. Abdominal ultrasound with no biliary ductal dilatation s/p CCY. LFTs down-trending. Assessment & Plan (11/24/2023 1:13 AM EDT): Presents with nausea and vomiting. Labs notable for alk phos 796, ast 678, alt 422 and Tbili 1.8 from normal one day prior at [facility]. Had received 2u RBC, Aranesp and Feraheme during that visit but none of these are new drugs and the patient has tolerated them without issues in the past. No other new drugs. RUQ ultrasound without abnormality in the liver, s/p cholecystectomy but no CBD dilatation or stones. CT A/P notes free fluid in the pelvis c/w possible ruptured ovarian cyst but no biliary pathology. Lipase normal. Medical records and patient reports this has occurred during her last episode of septic shock with much higher transaminases, this was in the setting of COVID and multiple new medications. She had a negative acute hepatitis panel at that time. LFT improved without intervention in August. Last checked 11/12 and within normal ranges per assay. -Trend LFTs Assessment & Plan (11/23/2023 7:50 AM EDT): Presents with nausea and vomiting. Labs notable for alk phos 796, ast 678, alt 422 and Tbili 1.8 from normal one day prior at [facility]. Had received 2u RBC, Aranesp and Feraheme during that visit but none of these are new drugs and the patient has tolerated them without issues in the past. No other new drugs. RUQ ultrasound without abnormality in the liver, s/p cholecystectomy but no CBD dilatation or stones. CT A/P notes free fluid in the pelvis c/w possible ruptured ovarian cyst but no biliary pathology. Lipase normal. Medical records and patient reports this has occurred during her last episode of septic shock with much higher transaminases, this was in the setting of COVID and multiple new medications. She had a negative acute hepatitis panel at that time. LFT improved without intervention in August. Last checked 11/12 and within normal ranges per assay. -Trend LFTs -Treat for septic shock as above Assessment & Plan (11/22/2023 6:52 PM EDT): Presents with nausea and vomiting. Labs notable for alk phos 796, ast 678, alt 422 and Tbili 1.8 from normal one day prior at [facility]. Had received 2u RBC, Aranesp and Feraheme during that visit but none of these are new drugs and the patient has tolerated them without issues in the past. No other new drugs. RUQ ultrasound without abnormality in the liver, s/p cholecystectomy but no CBD dilatation or stones. CT A/P notes free fluid in the pelvis c/w possible ruptured ovarian cyst but no biliary pathology. Lipase normal. Medical records and patient reports this has occurred during her last episode of septic shock with much higher transaminases, this was in the setting of COVID and multiple new medications. She had a negative acute hepatitis panel at that time. LFT improved without intervention in August. Last checked 11/12 and within normal ranges per assay. -Trend LFTs -Treat for septic shock as above Assessment & Plan (11/21/2023 4:17 PM EDT): Presents with nausea and vomiting. Labs notable for alk phos 796, ast 678, alt 422 and Tbili 1.8 from normal one day prior at [facility]. Had received 2u RBC, Aranesp and Feraheme during that visit but none of these are new drugs and the patient has tolerated them without issues in the past. No other new drugs. RUQ ultrasound without abnormality in the liver, s/p cholecystectomy but no CBD dilatation or stones. CT A/P notes free fluid in the pelvis c/w possible ruptured ovarian cyst but no biliary pathology. Lipase normal. Medical records and patient reports this has occurred during her last episode of septic shock with much higher transaminases, this was in the setting of COVID and multiple new medications. She had a negative acute hepatitis panel at that time. LFT improved without intervention in August. Last checked 11/12 and within normal ranges per assay. -Trend LFTs -Treat for septic shock as above Assessment & Plan (11/20/2023 6:31 PM EDT): Presents with nausea and vomiting. Labs notable for alk phos 796, ast 678, alt 422 and Tbili 1.8 from normal one day prior at [facility]. Had received 2u RBC, Aranesp and Feraheme during that visit but none of these are new drugs and the patient has tolerated them without issues in the past. No other new drugs. RUQ ultrasound without abnormality in the liver, s/p cholecystectomy but no CBD dilatation or stones. CT A/P notes free fluid in the pelvis c/w possible ruptured ovarian cyst but no biliary pathology. Lipase normal. Medical records and patient reports this has occurred during her last episode of septic shock with much higher transaminases, this was in the setting of COVID and multiple new medications. She had a negative acute hepatitis panel at that time. LFT improved without intervention in August. Last checked 11/12 and within normal ranges per assay. -Trend LFTs -Treat for septic shock as above Assessment & Plan (11/19/2023 4:07 PM EDT): Presents with nausea and vomiting. Labs notable for alk phos 796, ast 678, alt 422 and Tbili 1.8 from normal one day prior at [facility]. Had received 2u RBC, Aranesp and Feraheme during that visit but none of these are new drugs and the patient has tolerated them without issues in the past. No other new drugs. RUQ ultrasound without abnormality in the liver, s/p cholecystectomy but no CBD dilatation or stones. CT A/P notes free fluid in the pelvis c/w possible ruptured ovarian cyst but no biliary pathology. Lipase normal. Medical records and patient reports this has occurred during her last episode of septic shock with much higher transaminases, this was in the setting of COVID and multiple new medications. She had a negative acute hepatitis panel at that time. LFT improved without intervention in August. Last checked 11/12 and within normal ranges per assay. -Trend LFTs -Treat for septic shock as above Assessment & Plan (11/18/2023 9:24 PM EDT): Presents with nausea and vomiting. Labs notable for alk phos 796, ast 678, alt 422 and Tbili 1.8 from normal one day prior at [facility]. Had received 2u RBC, Aranesp and Feraheme during that visit but none of these are new drugs and the patient has tolerated them without issues in the past. No other new drugs. RUQ ultrasound without abnormality in the liver, s/p cholecystectomy but no CBD dilatation or stones. CT A/P notes free fluid in the pelvis c/w possible ruptured ovarian cyst but no biliary pathology. Lipase normal. Medical records and patient reports this has occurred during her last episode of septic shock with much higher transaminases, this was in the setting of COVID and multiple new medications. She had a negative acute hepatitis panel at that time. LFT improved without intervention in August. Last checked 11/12 and within normal ranges per assay. -Trend LFTs -Treat for septic shock as above Assessment & Plan (11/17/2023 7:24 PM EDT): Presents with nausea and vomiting. Labs notable for alk phos 796, ast 678, alt 422 and Tbili 1.8 from normal one day prior at [facility]. Had received 2u RBC, Aranesp and Feraheme during that visit but none of these are new drugs and the patient has tolerated them without issues in the past. No other new drugs. RUQ ultrasound without abnormality in the liver, s/p cholecystectomy but no CBD dilatation or stones. CT A/P notes free fluid in the pelvis c/w possible ruptured ovarian cyst but no biliary pathology. Lipase normal. Medical records and patient reports this has occurred during her last episode of septic shock with much higher transaminases, this was in the setting of COVID and multiple new medications. She had a negative acute hepatitis panel at that time. LFT improved without intervention in August. Last checked 11/12 and within normal ranges per assay. -Trend LFTs -Treat for septic shock as above Assessment & Plan (11/16/2023 8:10 PM EDT): Presents with nausea and vomiting. Labs notable for alk phos 796, ast 678, alt 422 and Tbili 1.8 from normal one day prior at [facility]. Had received 2u RBC, Aranesp and Feraheme during that visit but none of these are new drugs and the patient has tolerated them without issues in the past. No other new drugs. RUQ ultrasound without abnormality in the liver, s/p cholecystectomy but no CBD dilatation or stones. CT A/P notes free fluid in the pelvis c/w possible ruptured ovarian cyst but no biliary pathology. Lipase normal. Medical records and patient reports this has occurred during her last episode of septic shock with much higher transaminases, this was in the setting of COVID and multiple new medications. She had a negative acute hepatitis panel at that time. LFT improved without intervention in August. Last checked 11/12 and within normal ranges per assay. -Trend LFTs -Treat for septic shock as above Poor venous access 06/06/2016 Iron deficiency anemia due to chronic blood loss 12/07/2015 Infection of intravenous catheter 03/31/2015 Cardiomyopathy 01/12/2015 Overview (11/15/2023): Last Assessment & Plan: TTE 09/2022 showed EF of 45-50% with diffusely hypokinetic LV, repeat on 10/17 with EF 45%, diffusely hypokinetic and mildly reduced LV function. Desaturated in ED to 89% and placed on 4L NC. CT chest notable for b/l multifocal upper lobe predominant GGOs with superimposed interlobular septal thickening and additional multifocal nodular consolidative opacities. CT showed b/l trace pleural effusions. Takes Lasix 10mg IV PRN as OP, states last taking ~ 1 month ago. BNP initially elevated to 5K, baseline ~ 1K, but on exam she continues to appear hypovolemic (chapped lips, no edema, only minor rales). TTE without vegetation, unchanged from 09/18. Considering her symptoms are improving while taking antibiotics and her bacteremia, overall suspicion is low that current respiratory status is contributed to by cardiac cause. - Pt on clonidine TD replaced weekly -> last applied on 10/19 - Holding on Lasix for now given bacteremia and appears dry on exam (takes ~ 1x/month for edema per pt) - Resumed Coreg 6.25mg via J-tube BID and verapamil 40mg via J-tube q8h as GJ replaced Assessment & Plan (11/24/2023 1:13 AM EDT): Hx of NICMP TTE 09/2022 showed EF of 45-50% with diffusely hypokinetic LV, repeat on 10/17 with EF 45%, diffusely hypokinetic and mildly reduced LV function. TTE 11/20/23 showed 39% EF. Takes lasix 10mg IV daily prn for shortness of breath or weight gain. No recent dosing. Held during this admission iso RONAL and fungemia. On Transfer: - consider restart home lasix if gaining weight -Monitor I&O Assessment & Plan (11/23/2023 7:50 AM EDT): Hx of [facility] TTE 09/2022 showed EF of 45-50% with diffusely hypokinetic LV, repeat on 10/17 with EF 45%, diffusely hypokinetic and mildly reduced LV function. TTE 11/20/23 showed 39% EF. Takes lasix 10mg IV daily prn for shortness of breath or weight gain. No recent dosing. -Hold lasix in the setting of RONAL - consider restart home lasix if gaining weight -Monitor I&O Assessment & Plan (11/22/2023 6:52 PM EDT): Hx of [facility] TTE 09/2022 showed EF of 45-50% with diffusely hypokinetic LV, repeat on 10/17 with EF 45%, diffusely hypokinetic and mildly reduced LV function. TTE 11/20/23 showed 39% EF. Takes lasix 10mg IV daily prn for shortness of breath or weight gain. No recent dosing. -Hold lasix in the setting of RONAL - consider restart home lasix if gaining weight -Monitor I&O Assessment & Plan (11/21/2023 4:17 PM EDT): Hx of [facility] TTE 09/2022 showed EF of 45-50% with diffusely hypokinetic LV, repeat on 10/17 with EF 45%, diffusely hypokinetic and mildly reduced LV function. TTE 11/20/23 showed 39% EF. Takes lasix 10mg IV daily prn for shortness of breath or weight gain. No recent dosing. -Hold lasix in the setting of RONAL - consider restart home lasix if gaining weight -Monitor I&O Assessment & Plan (11/20/2023 6:31 PM EDT): Hx of NICMP TTE 09/2022 showed EF of 45-50% with diffusely hypokinetic LV, repeat on 10/17 with EF 45%, diffusely hypokinetic and mildly reduced LV function. TTE 11/20/23 showed 39% EF. Takes lasix 10mg IV daily prn for shortness of breath or weight gain. No recent dosing. -Hold lasix in the setting of RONAL - consider restart home lasix if gaining weight -Monitor I&O Assessment & Plan (11/19/2023 4:07 PM EDT): Hx of NIC TTE 09/2022 showed EF of 45-50% with diffusely hypokinetic LV, repeat on 10/17 with EF 45%, diffusely hypokinetic and mildly reduced LV function. Takes lasix 10mg IV daily prn for shortness of breath or weight gain. No recent dosing. -Hold lasix in the setting of RONAL - consider restart home lasix if gaining weight -Monitor I&O Assessment & Plan (11/18/2023 9:24 PM EDT): Hx of NIC TTE 09/2022 showed EF of 45-50% with diffusely hypokinetic LV, repeat on 10/17 with EF 45%, diffusely hypokinetic and mildly reduced LV function. Takes lasix 10mg IV daily prn for shortness of breath or weight gain. No recent dosing. -Hold lasix in the setting of RONAL - consider restart home lasix if gaining weight -Monitor I&O Assessment & Plan (11/17/2023 7:24 PM EDT): Hx of NICMP TTE 09/2022 showed EF of 45-50% with diffusely hypokinetic LV, repeat on 10/17 with EF 45%, diffusely hypokinetic and mildly reduced LV function. Takes lasix 10mg IV daily prn for shortness of breath or weight gain. No recent dosing. -Hold lasix in the setting of RONAL -Monitor I&O Assessment & Plan (11/16/2023 8:10 PM EDT): Hx of NICMP TTE 09/2022 showed EF of 45-50% with diffusely hypokinetic LV, repeat on 10/17 with EF 45%, diffusely hypokinetic and mildly reduced LV function. Takes lasix 10mg IV daily prn for shortness of breath or weight gain. No recent dosing. -Hold lasix in the setting of RONAL -Monitor I&O Bacteremia 08/31/2014 Overview (11/15/2023): Last Assessment & Plan: Presented to IR on 11/17/15 for pain and swelling at [facility]. No fluid collection on bedside ultrasound of the left neck, however concern for thrombus around catheter site. Antibiotics deferred given benign appearance and history of CDiff. Presented to ED on 11/17 with fevers to 103F. qSOFA 2 on arrival (tachypneic, hypotensive to 70/50s). LA 0.6, WBC 5.8. Central line infection +/- infected thrombosis most likely source of infection given history of multiple line-associated infections. CXR negative. High-grade MRSA bacteremia noted on 11/17, 11/18, 11/19, 11/20. Positive on 11/21. No valvular vegetations noted on TTE. LUE Ultrasound notable for partial LIJ thrombosis (age indeterminate). ID & IR consulted, appreciate recs managing this complex, immunocompromised patient with recurrent CLABSI and poor vascular options. S/P removal of L IJ and placement of new EJ in IR on 11/23 -Increased Vancomycin 1.25g Q8 hours -Per ID, will need 4-6 weeks abx, starting on 11/23 -Will follow up with ID as an outpt and will determine length of treatment ([id number]) - Daily 12-lead EKG to monitor for new conduction delay On 08/31 pt was SIRS 3/4 (T103.7, WBC 3.52, P 133) and had fluctuating AMS with dilated pupils. DDX included infection (pt was found to have +C. Diff, but also concern for new/systemic infection) vs opioid withdrawal. She was restarted on her home IV dilaudid 3mg Q3 (as cannot do home dose without J tube), vancomycin 2g Q12H, cefepime 1g Q12, IV flagyll 500 q8 (08/31). On 09/02 Cefepime/Flagyll were d/c'd as pt clinically improved, with symptoms attributed to her known C. Diff. However, BCx from 08/31 grew GNR 1/6 bottles--and patient was thus restarted on IV Cefepime, which was narrowed to IV Ceftriaxone 2g (09/02) based on sensitivities; eventually growing Klebsiella. BCx x 4 days were without growth 09-02 to 09/04. Patient will be continued on IV Ceftriaxone until 09/16. Last Assessment & Plan: Recently treated with 14d course abx for polymicrobial bacteremia (Cefepime, micafungin, dapto). Pt was supposed to instill Vanco and gentamicin in lumens 1 & 2 6x/wk starting 10/10/23 but pt states she did not start as she did not hear back from the [facility] for instructions. This admission, p/w fatigue, hot flashes, SOB. Blood cultures (10/14) growing multiple organisms on [employer] including Staph epidermidis, both E faecalis and E faecium, Klebsiella, Serratia, Steno, and Julieta parapsilosis. Of note, bcx on prior admission growing Stenotrophomonas was not treated. TTE without vegetation. MRSA swab neg. Blood Cx from CVC (10/15) NGTD. ID consulted and recommend source control by exchanging her CVC. Unfortunately, she has only one possible site so it was successfully exchanged on 10/17/23 and ready to be used. Per ID, stopped bactrim for Steno coverage as she has new line. After losing PIV, now only access is CVC double lumen, one lumen reserved for TPN. - ID following, appreciate recs (signed off) - Blood cultures NGTD since 10/15 - Unable to produce sputum for culture - Antibiosis: - s/p cefepime, azithro, metronidazole, daptomycin - cont micafungin 100mg IV q24; pip-tazo 4.5 q6h (end 10/31/23) - cont vanc/gent locks daily for non-TPN lumen of CVC (double lumen line) - for nursing communication: if access limits IV med administration, least important is vanc/gent locks - D/c'd bactrim 400/80 via J tube daily; resume after completion of abx course - Ensure outpatient ID follow-up Headache 07/14/2014 Overview (11/15/2023): Last Assessment & Plan: Secondary issue. Etiology not entirely clear. Pt notes that current headache is similar to the one that she had when she had a line infection in the past. Headaches may be attributable to the other symptoms that are associated with her fever (ie line infection vs asthma exacerbation due To a viral process) Pt does not have any meningeal signs/focal neurologic symptoms/history of head trauma. No explanation for GOODRICH on head CT. -CTM Chronic pain 08/18/2010 Overview (11/15/2023): Last Assessment & Plan: #Chronic nausea [facility]. Last had a celiac plexus block on 08/01/2023. Typically receives 2L NS daily in addition to TPN. Initially holding her J-tube meds while it was malfunctioning: previously holding cyclobenzaprine, nortriptyline, buspar, tizanidine. Will restart with the more important medications first to trial J-tube functionality. -Pain: - Continue home suboxone 8-2 TID - IV Dilaudid 2-3mg IV q3 PRN - Breakthrough pain IV tylenol - Continue scopolamine, IV benadryl PRN, IV zofran PRN nausea (home meds); IM Phenergan (Qtc 459 - 10/17) - J tube replaced and now function, thus resumed below meds: - nortriptyline 50mg nightly - buspar decreased to 10mg TID per PharmD -> resume 20mg TID on dc - tizanidine 8mg nightly PRN - cyclobenzaprine 10mg TID PRN - Holding gabapentin 900mg TID (need liquid, which is non-form) Last Assessment & Plan: - continue Suboxone 8/2 mg TID - hold clonidine given concern for acute blood loss - continue tylenol, gabapentin, nortriptyline, venlafaxine, trazodone, tizanidine prn Assessment & Plan (11/24/2023 1:13 AM EDT): Hx of chronic abd pain managed on suboxone 8-2mg 3 times a day. She underwent a celiac plexis block with no improvement. Currently experiencing and exacerbation of pain, likely secondary due ruptured ovarian cyst as suspected on imaging. Given additional doses of IV dilaudid which she has tolerated well. On Transfer: -cont suboxone 8mg 3 times a day - IV dilaudid 2-3mg Q4 PRN Assessment & Plan (11/23/2023 7:50 AM EDT): Hx of chronic abd pain managed on suboxone 8-2mg 3 times a day. She underwent a celiac plexis block with no improvement. Currently experiencing and exacerbation of pain, likely secondary due ruptured ovarian cyst as suspected on imaging. Given additional doses of IV dilaudid which she has tolerated well. -cont suboxone 8mg 3 times a day - IV dilaudid 2-3mg Q4 PRN -Cont pulse ox Assessment & Plan (11/22/2023 6:52 PM EDT): Hx of chronic abd pain managed on suboxone 8-2mg 3 times a day. She underwent a celiac plexis block with no improvement. Currently experiencing and exacerbation of pain, likely secondary due ruptured ovarian cyst as suspected on imaging. Given additional doses of IV dilaudid which she has tolerated well. -cont suboxone 8mg 3 times a day - IV dilaudid 2-3mg Q4 PRN -Cont pulse ox Assessment & Plan (11/21/2023 4:17 PM EDT): Hx of chronic abd pain managed on suboxone 8-2mg 3 times a day. She underwent a celiac plexis block with no improvement. Currently experiencing and exacerbation of pain, likely secondary due ruptured ovarian cyst as suspected on imaging. Given additional doses of IV dilaudid which she has tolerated well. -cont suboxone 8mg 3 times a day - IV dilaudid 2-3mg Q4 PRN -Cont pulse ox Assessment & Plan (11/20/2023 6:31 PM EDT): Hx of chronic abd pain managed on suboxone 8-2mg 3 times a day. She underwent a celiac plexis block with no improvement. Currently experiencing and exacerbation of pain, likely secondary due ruptured ovarian cyst as suspected on imaging. Given additional doses of IV dilaudid which she has tolerated well. -cont suboxone 8mg 3 times a day - IV dilaudid 2-3mg Q4 PRN -Cont pulse ox Assessment & Plan (11/19/2023 4:07 PM EDT): Hx of chronic abd pain managed on suboxone 8-2mg 3 times a day. She underwent a celiac plexis block with no improvement. Currently experiencing and exacerbation of pain, likely secondary due ruptured ovarian cyst as suspected on imaging. Given additional doses of IV dilaudid which she has tolerated well. -cont suboxone 8mg 3 times a day - IV dilaudid 2-3mg Q4 PRN -Cont pulse ox Assessment & Plan (11/18/2023 9:24 PM EDT): Hx of chronic abd pain managed on suboxone 8-2mg 3 times a day. She underwent a celiac plexis block with no improvement. Currently experiencing and exacerbation of pain, likely secondary due ruptured ovarian cyst as suspected on imaging. Given additional doses of IV dilaudid which she has tolerated well. -cont suboxone 8mg 3 times a day - IV dilaudid 2-3mg Q4 PRN -Cont pulse ox Assessment & Plan (11/17/2023 7:24 PM EDT): Hx of chronic abd pain managed on suboxone 8-2mg 3 times a day. She underwent a celiac plexis block with no improvement. Currently experiencing and exacerbation of pain, likely secondary due ruptured ovarian cyst as suspected on imaging. Given additional doses of IV dilaudid which she has tolerated well. -cont suboxone 8mg 3 times a day - IV dilaudid 2-3mg Q4 PRN -Cont pulse ox Assessment & Plan (11/16/2023 8:10 PM EDT): Hx of chronic abd pain managed on suboxone 8-2mg 3 times a day. She underwent a celiac plexis block with no improvement. Currently experiencing and exacerbation of pain, likely secondary due ruptured ovarian cyst as suspected on imaging. Given additional doses of IV dilaudid which she has tolerated well. -cont suboxone 8mg 3 times a day - IV dilaudid 2-3mg Q4 PRN -Cont pulse ox DVT of upper extremity (deep vein thrombosis) Overview (11/15/2023): Line associated upper extremity. On eliquis. Last Assessment & Plan: Currently holding home apixaban 2.5mg BID due to J-tube dysfunction, replaced with therapeutic lovenox until GJ replaced. - resumed apixaban 2.5 mg BID via J Assessment & Plan (11/24/2023 1:13 AM EDT): Home meds: apixaban 2.5mg BID via JTube Hx of DVT managed on eliquis, recently dose reduced based on anti Xa trough levels. Currently taking 2.5mg BID via Jtube. No concern for acute DVT. Stable. On Transfer: -cont eliquis 2.5mg BID Assessment & Plan (11/23/2023 7:50 AM EDT): Home meds: apixaban 2.5mg BID via JTube Hx of DVT managed on eliquis, recently dose reduced based on anti Xa trough levels. Currently taking 2.5mg BID via Jtube. No concern for acute DVT. Stable. -cont eliquis 2.5mg BID Assessment & Plan (11/22/2023 6:52 PM EDT): Home meds: apixaban 2.5mg BID via JTube Hx of DVT managed on eliquis, recently dose reduced based on anti Xa trough levels. Currently taking 2.5mg BID via Jtube. No concern for acute DVT. Stable. -cont eliquis 2.5mg BID Assessment & Plan (11/21/2023 4:17 PM EDT): Home meds: apixaban 2.5mg BID via JTube Hx of DVT managed on eliquis, recently dose reduced based on anti Xa trough levels. Currently taking 2.5mg BID via Jtube. No concern for acute DVT. Stable. -cont eliquis 2.5mg BID Assessment & Plan (11/20/2023 6:31 PM EDT): Home meds: apixaban 2.5mg BID via JTube Hx of DVT managed on eliquis, recently dose reduced based on anti Xa trough levels. Currently taking 2.5mg BID via Jtube. No concern for acute DVT. Stable. -cont eliquis 2.5mg BID Assessment & Plan (11/19/2023 4:07 PM EDT): Home meds: apixaban 2.5mg BID via JTube Hx of DVT managed on eliquis, recently dose reduced based on anti Xa trough levels. Currently taking 2.5mg BID via Jtube. No concern for acute DVT. Stable. -cont eliquis 2.5mg BID Assessment & Plan (11/18/2023 9:24 PM EDT): Hx of DVT managed on eliquis, recently dose reduced based on anti Xa trough levels. Currently taking 2.5mg BID via Jtube. No concern for acute DVT. Stable. -cont eliquis 2.5mg BID Assessment & Plan (11/17/2023 7:24 PM EDT): Hx of DVT managed on eliquis, recently dose reduced based on anti Xa trough levels. Currently taking 2.5mg BID via Jtube. No concern for acute DVT. Stable. -cont eliquis 2.5mg BID Assessment & Plan (11/16/2023 8:10 PM EDT): Hx of DVT managed on eliquis, recently dose reduced based on anti Xa trough levels. Currently taking 2.5mg BID via Jtube. No concern for acute DVT. Stable. -cont eliquis 2.5mg BID Gastroparesis 01/11/2009 Overview (11/15/2023): Patient has chronic gastroparesis and is intolerant of PO/enteral nutrition s/p R-en-Y jejunojejunostomy with G and J tubes. Patient was NPO from 08/31 -09/06, as she could not receive TPN through J tube with + c-diff and Pineda was removed. Patient was restarted on TPN once [facility] replaced, but remained on D5NS @ 125 mL/hr, with dextrose 50% injections for hypoglycemia, RISS PRN until then. Electrolytes were monitored and repleted PRN. Family meeting was held on 09/03, discussing alternative pain med regimen that could have less traumatic side effects (e.g. Gastric motility) and lower risk of complications (e.g recurrent line infections). Pt and family agreed that it would be in her best interest to wean off dilaudid, 1mg per day, with the hope of starting suboxone. Dr. Frost from her outpatient pain clinic was made aware of this plan. Pt was seen by addiction psychiatry (09/06) who followed her closely until the morning of induction 09/10, at which time the fellow and attending from the addiction psychiatry team titrated her dose of suboxone (4mg SL Q2 PRN withdrawal, with limit 24mg/day). Last Assessment & Plan: S/p R-en-Y jejunojejunostomy with G & J tubes. On chronic TPN. Difficulty tolerating TFs iso gastroparesis & high doses of opioids/anticholinergics/antiemetics. J- tube replaced by Surgery at bedside 08/10/20. S/p IR G to G-J conversion 08/11/20. S/p exchange of translumbar CVC x2 as above (see #MRSA bacteremia). Slowly advancing tube feeds, which will continue in outpatient setting, with ultimate goal to wean off TPN if able. - appreciate nutrition recommendations - continue TPN - slowly advancing TF @ 30 cc/hr x10 hours during day - continue advancement in outpatient setting - J-tube (managed by surgery): for medication administration only; note tube is chronically leaking and has ostomy appliance around it - G-J tube (managed by IR): G component continuously venting; J component for tube feeds; note IR does not recommend using this tube for medication administration due to clogging - wean narcotics and anticholinergics as above - holding off on bowel reg for now as now on TFs and with loose stools Assessment & Plan (11/24/2023 1:13 AM EDT): Hx of chronic gastroparesis and is intolerant of PO/enteral nutrition s/p R-en-Y jejunojejunostomy with G and J tubes. On chronic TPN. Difficulty tolerating TFs iso gastroparesis & high doses of opioids/anticholinergics/antiemetics. Currently receiving TPN via central line. G tube for decompression only and J tube for medications. Assessment & Plan (11/23/2023 7:50 AM EDT): Hx of chronic gastroparesis and is intolerant of PO/enteral nutrition s/p R-en-Y jejunojejunostomy with G and J tubes. On chronic TPN. Difficulty tolerating TFs iso gastroparesis & high doses of opioids/anticholinergics/antiemetics. Currently receiving TPN via central line. G tube for decompression only and J tube for medications. Assessment & Plan (11/22/2023 6:52 PM EDT): Hx of chronic gastroparesis and is intolerant of PO/enteral nutrition s/p R-en-Y jejunojejunostomy with G and J tubes. On chronic TPN. Difficulty tolerating TFs iso gastroparesis & high doses of opioids/anticholinergics/antiemetics. Currently receiving TPN via central line. G tube for decompression only and J tube for medications. Assessment & Plan (11/21/2023 4:17 PM EDT): Hx of chronic gastroparesis and is intolerant of PO/enteral nutrition s/p R-en-Y jejunojejunostomy with G and J tubes. On chronic TPN. Difficulty tolerating TFs iso gastroparesis & high doses of opioids/anticholinergics/antiemetics. Currently receiving TPN via central line. G tube for decompression only and J tube for medications. Assessment & Plan (11/20/2023 6:31 PM EDT): Hx of chronic gastroparesis and is intolerant of PO/enteral nutrition s/p R-en-Y jejunojejunostomy with G and J tubes. On chronic TPN. Difficulty tolerating TFs iso gastroparesis & high doses of opioids/anticholinergics/antiemetics. Currently receiving TPN via central line. G tube for decompression only and J tube for medications. Assessment & Plan (11/19/2023 4:07 PM EDT): Hx of chronic gastroparesis and is intolerant of PO/enteral nutrition s/p R-en-Y jejunojejunostomy with G and J tubes. On chronic TPN. Difficulty tolerating TFs iso gastroparesis & high doses of opioids/anticholinergics/antiemetics. Currently receiving TPN via central line. G tube for decompression only and J tube for medications. Assessment & Plan (11/18/2023 9:24 PM EDT): Hx of chronic gastroparesis and is intolerant of PO/enteral nutrition s/p R-en-Y jejunojejunostomy with G and J tubes. On chronic TPN. Difficulty tolerating TFs iso gastroparesis & high doses of opioids/anticholinergics/antiemetics. Currently receiving TPN via central line. G tube for decompression only and J tube for medications. Assessment & Plan (11/17/2023 7:24 PM EDT): Hx of chronic gastroparesis and is intolerant of PO/enteral nutrition s/p R-en-Y jejunojejunostomy with G and J tubes. On chronic TPN. Difficulty tolerating TFs iso gastroparesis & high doses of opioids/anticholinergics/antiemetics. Currently receiving TPN via central line. G tube for decompression only and J tube for medications. Assessment & Plan (11/16/2023 8:10 PM EDT): Hx of chronic gastroparesis and is intolerant of PO/enteral nutrition s/p R-en-Y jejunojejunostomy with G and J tubes. On chronic TPN. Difficulty tolerating TFs iso gastroparesis & high doses of opioids/anticholinergics/antiemetics. Currently receiving TPN via central line. G tube for decompression only and J tube for medications. 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 Receives IVIG every three weeks. Missed last 2 scheduled doses as OP. Received IVIG as IP 10/26/23. 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 Patient reports taking steroids after IVIg for headache prevention. She received IVIg during this admission on 11/19. Heme/Onc was consulted and followed; no changes to regimen at this time. 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 Patient reports taking steroids after IVIg for headache prevention. 11/22/23: Attempted to reach patient's outpatient provider managing CVID and IVIg - no response - IVIg weekly (D1: 11/20/23) - Confirmed no contraindication to administer iso fungemia with ID - Heme/Onc consulted; appreciate recs - Workup: - B12 - Folate Assessment & Plan (11/22/2023 6:52 PM EDT): Hx of CVID managed on IVIG 25g weekly every Saturday. Patient reports taking steroids after IVIg for headache prevention. 11/22/23: Attempted to reach patient's outpatient provider managing CVID and IVIg - no response - IVIg weekly (D1: 11/20/23) - Confirmed no contraindication to administer iso fungemia with ID - Heme/Onc consulted; appreciate recs - Workup: - B12 - Folate Assessment & Plan (11/21/2023 4:17 PM EDT): Hx of CVID managed on IVIG 25g weekly every Saturday. - IVIg weekly (D1: 11/19/23) - Confirmed no contraindication to administer iso fungemia with ID Assessment & Plan (11/20/2023 6:31 PM EDT): Hx of CVID managed on IVIG 25g weekly every Saturday. - IVIg weekly (D1: 11/19/23) - Confirmed no concern re: fungemia with ID Assessment & Plan (11/19/2023 4:07 PM EDT): Hx of CVID managed on IVIG 25g weekly every Saturday. - IVIg weekly (D1: 11/19/23) - Confirmed no concern re: fungemia with ID Assessment & Plan (11/18/2023 9:24 PM EDT): Hx of CVID managed on IVIG documented as 100mg monthly but the patient reports 25g IV every Saturday, last dose 5 days ago. Assessment & Plan (11/17/2023 7:24 PM EDT): Hx of CVID managed on IVIG documented as 100mg monthly but the patient reports 25g IV every Saturday, last dose 5 days ago. Assessment & Plan (11/16/2023 8:10 PM EDT): Hx of CVID managed on IVIG documented as 100mg monthly but the patient reports 25g IV every Saturday, last dose 5 days ago. Resolved Problems Problem Noted Date Diagnosed Date Resolved Date RONAL (acute kidney injury) 11/15/2023 Assessment & Plan (11/19/2023 4:07 PM EDT): Presented with creat 1.86 from baseline normal in the setting of N/V and possible sepsis. Noted to have suprapubic pain. CT A/P revealed free fluids concerned for ruptured ovarian cyst. [employer] ultrasound notable for absent right ovary otherwise benign. UA ordered, noninfectious. Nephrology consulted with creatinine peak of 2.25. Likely multifactorial pre-renal azotemia mixed with bactrim use. Given 2L IV hydration. Patient's creatinine returned to baseline 11/15. -Renal consulted, appreciate recs -Cr normalized with IVF Assessment & Plan (11/18/2023 9:24 PM EDT): Presented with creat 1.86 from baseline normal in the setting of N/V and possible sepsis. Noted to have suprapubic pain. CT A/P revealed free fluids concerned for ruptured ovarian cyst. [employer] ultrasound notable for absent right ovary otherwise benign. UA ordered, noninfectious. Nephrology consulted with creatinine peak of 2.25. Likely multifactorial pre-renal azotemia mixed with bactrim use. Given 2L IV hydration. Patient's creatinine returned to baseline 11/15. -Renal consulted, appreciate recs -Cr normalized with IVF Assessment & Plan (11/17/2023 7:26 PM EDT): Presented with creat 1.86 from baseline normal in the setting of N/V and possible sepsis. Noted to have suprapubic pain. CT A/P revealed free fluids concerned for ruptured ovarian cyst. [employer] ultrasound notable for absent right ovary otherwise benign. UA ordered, noninfectious. Nephrology consulted with creatinine peak of 2.25. Likely multifactorial pre-renal azotemia mixed with bactrim use. Given 2L IV hydration. Patient's creatinine returned to baseline 11/15. -Renal consulted, appreciate recs -Cr normalized with IVF Assessment & Plan (11/16/2023 8:10 PM EDT): Presents with creat 1.86 from baseline normal in the setting of N/V and possible sepsis. Noted to have suprapubic pain. CT A/P revealed free fluids concerned for ruptured ovarian cyst. [employer] ultrasound notable for absent right ovary otherwise benign. UA ordered but not yet obtained. Likely multifactorial pre-renal azotemia mixed with bactrim use. Given 2L IV hydration. Will rule out infection with UA. -Renal consulted, appreciate recs -Cr normalized with IVF Shock liver 11/15/2023 11/24/2023 Assessment & Plan (11/24/2023 1:13 AM EDT): Severe abdominal pain with marked transaminitis. S/p cholecystectomy with normal ultrasound. Suspect elevated transaminases is secondary to shock liver in the setting of sepsis and volume depletion. -Continue daily CMP Assessment & Plan (11/23/2023 7:50 AM EDT): Severe abdominal pain with marked transaminitis. S/p cholecystectomy with normal ultrasound. Suspect elevated transaminases is secondary to shock liver in the setting of sepsis and volume depletion. -Continue daily CMP Assessment & Plan (11/22/2023 6:52 PM EDT): Severe abdominal pain with marked transaminitis. S/p cholecystectomy with normal ultrasound. Suspect elevated transaminases is secondary to shock liver in the setting of sepsis and volume depletion. -Continue daily CMP Assessment & Plan (11/21/2023 4:17 PM EDT): Severe abdominal pain with marked transaminitis. S/p cholecystectomy with normal ultrasound. Suspect elevated transaminases is secondary to shock liver in the setting of sepsis and volume depletion. -Continue daily CMP Assessment & Plan (11/20/2023 6:31 PM EDT): Severe abdominal pain with marked transaminitis. S/p cholecystectomy with normal ultrasound. Suspect elevated transaminases is secondary to shock liver in the setting of sepsis and volume depletion. -Continue daily CMP Assessment & Plan (11/19/2023 4:07 PM EDT): Severe abdominal pain with marked transaminitis. S/p cholecystectomy with normal ultrasound. Suspect elevated transaminases is secondary to shock liver in the setting of sepsis and volume depletion. -Continue daily CMP Assessment & Plan (11/18/2023 9:24 PM EDT): Severe abdominal pain with marked transaminitis. S/p cholecystectomy with normal ultrasound. Suspect elevated transaminases is secondary to shock liver in the setting of sepsis and volume depletion. -Continue daily CMP Assessment & Plan (11/17/2023 7:24 PM EDT): Severe abdominal pain with marked transaminitis. S/p cholecystectomy with normal ultrasound. Suspect elevated transaminases is secondary to shock liver in the setting of sepsis and volume depletion. -Continue daily CMP Assessment & Plan (11/16/2023 8:10 PM EDT): Severe abdominal pain with marked transaminitis. S/p cholecystectomy with normal ultrasound. Suspect elevated transaminases is secondary to shock liver in the setting of sepsis and volume depletion. -Continue daily CMP COVID 09/04/2023 11/15/2023 Overview (11/15/2023): Last Assessment & Plan: #Asthma Patient tested positive for COVID on 09/03 and again on admission (09/16). She received 3 doses of remdesivir in the outpatient setting, but continued to be symptomatic (productive cough, no fevers). This may be the same infection as patient is immunocompromised. ID recommended testing q2-[address], which has been increasing without additional treatment. - defer starting paxlovid/remdesivir iso transaminitis and rising cycle threshold suggesting resolving infection (last CT on 09/28: 38) - Recheck COVID swab and cycle threshold today. - Albuterol nebs PRN - Continue montelukast 10mg qhs - Supportive care Bacteremia due to Enterococcus 11/29/2019 11/15/2023 Overview (11/15/2023): Last Assessment & Plan: Recent admission for line infection s/p exchange over wire and recently completed course of vancomycin/cefepime thru 11/18 as well as ethanol locks. Presents with J tube failure after recent exchange. Developed fever and chills in ED. COVID negative. BCx from [facility] growing Enterococcus faecalis. UA & CXR unremarkable. CT A/P with no acute abnormality. DDx for bacteremia includes CLABSI vs translocation from abscess around G-tube (now s/p I&D). Surveillance cultures 11/28-12/01 with no growth. TTE 11/29 with mildly impaired LVEF (44%), diffusely hypokinetic left ventricle, moderate focal thickening of MV - possible vegetation cannot be ruled out. S/p Cefepime (11/27- 11/29), Vancomycin (11/27-11/30). - appreciate infectious disease recommendations - ELISHA 12/02 - line exchange with IR 12/02 - IV ampicillin 2g Q4 hrs (11/30- ); anticipate 4-6 week course pending ELISHA & final ID rec's - daily ethanol locks: 2mL - dwell 2-4 hours per day - f/u surveillance cultures - f/u final wound culture (from G-tube site) - [facility] to provide home infusion services after discharge Bacteremia due to methicilli n resistant Staphylococcus aureus 03/31/2015 11/15/2023 Overview (11/15/2023): Last Assessment & Plan: Prior central line infections most recently s/p [place] CVC infection and MRSA CVC pocket/tract infection during 05/2020 admission, with prior line removed and new translumbar CVC placed on 06/03/20. Completed course of vancomycin. Returned with fevers. BCx from 08/04 growing MRSA (4/4 bottles). Surveillance cultures 08/06, 08/07, 08/08 NGTD. MRI spine with no osteo. TTE without evidence of vegetation. Extensive discussions with ID, IR, Surgery - ultimately decision made to defer line holiday given extremely difficult history w/ venous access. Now s/p line exchange over guidewire w/ IR 08/11/20. CVC exchanged again 08/17/20 given pinholes in line after first exchange. Long-term, need to identify necessity of permanent central access given high risk of morbidity & mortality 2/2 complications from recurrent line infections. - appreciate ID recs (see sign off note 08/08) - continue IV vancomycin - 4 week course post negative BCx (end date 09/03/20); Vanc trough 14.9, resumed dose at 1250mg IV q12, next trough due at 9AM on 08/23/20 - vancomycin locks - per ID, to continue thru antibiotic therapy * CCRN confirmed with infusion [employer] ([email or web address]) that vancomycin locks will be provided after discharge - working towards long-term goal of line removal; of note, has had presentations where she gets IVs in alternate sites (EJ, peripheral) - f/u with ID 08/30/20; ID will determine longitudinal plan for CVC lock therapy at follow-up visit Recurrent Clostridium difficile diarrhea 03/31/2015 11/15/2023 Overview (11/15/2023): Last Assessment & Plan: Recurrent infections. S/P fecal transplant in 2016. -start vancomycin 125mg PO BID Colitis due to Clostridioides difficile 07/04/2010 11/15/2023 Overview (11/15/2023): status post fecal transplant Pulmonary embolism 02/25/2009 Overview (11/15/2023): Last Assessment & Plan: # DVT - resumed Apixaban 5mg BID as GJ exchanged Social History Tobacco Use Types Packs/Day Years Used Date Smoking Tobacco: Never Smokeless Tobacco: Never Tobacco Cessation:Counseling Given: Not Answered Alcohol Use Standard Drinks/Week Comments Not Currently 0 (1 standard drink = 0.6 oz pur e alcohol) [facility] Utilities Answer Date Recorded In the past 12 months has th e electric, gas, oil, or water [employer]20/20 threatened to shut off services in your home? No 11/18/2023 Hunger Vital Sign Answer Date Recorded Within the past 12 months, y ou worried that your food would run out before you got the money to buy more. Never true 11/18/19 24 Within the past 12 months, t he food you bought just didn't last and you didn't have money to get more. Never true 11/18/2023 Transportation Answer Date Recorded In the past 12 months, has l ack of reliable transportation kept you from medical appointments, meetings, work or from getting things needed for daily living? No 11/18/2023 Housing Answer Date Recorded Housing Risk Low 2 11/18/2023 Housing Risk Medium Not on file 11/18/2023 Housing Risk High Not on file 11/18/2023 What is your living situation today? [facility] 11/18/2023 Comments No Sex and Gender Information Value Date Recorded Sex Assigned at Female 11/14/2023 12:22 PM EDT Legal Sex Female 8:22 AM EDT Gender Identity Not on file Sexual Orientation Not on file Last Filed Vital Signs Vital Sign Reading Time Taken Comments Blood Pressure 141/90 11/23/2023 9:18 PM EDT Pulse 72 11/23/2023 5:50 PM EDT Temperature 37.2 C (99 F) 11/23/2023 5:50 PM EDT Respiratory Rate 18 11/23/2023 9:18 PM EDT Oxygen Saturation 95% 11/23/2023 9:18 PM EDT Inhaled Oxygen Concentration - - Weight 56 kg (123 lb 7.3 oz) 11/23/2023 5:31 AM EDT Height 172.7 cm (5' 8 ) 11/20/2023 5:55 AM EDT Body Mass Index 18.77 11/20/2023 5:55 AM EDT Plan of Treatment Health Maintenance Due Date Last Done Comments HIV Screening 1984 HPV and Pap Smear 1984 Medicare AWV 02/09/1985 Varicella Vaccines (1 of 2 - 13+ 2-dose series) 02/09/1997 Hepatitis B Vaccines (1 of 3 - 19+ 3-dose series) 02/09/2003 Cervical Cancer Screening 06/09/2013 Pap Smear 06/09/2013 06/09/2010 COVID-19 Vaccine (2023-2 5 season) 2023 12/21/2022, 05/25/2021, 10/10/2020, Additional history exists Alcohol/Substance Use Screening 02/26/2024 Depression Screening and Follow-Up 02/26/2024 Social Drivers of Health Shara ual Screening 02/26/2024 Influenza Vaccine (#1) 2024 , 12/12/2021, 11/25/2020, Additional history exists Basic Metabolic Panel 11/22/2024 11/23/2023 , 11/22/2023, 11/21/2023, Additional history exists Mammogram 10/22/2025 10/23/2023, 09/26, 10/19/2023, Additional history exists DTaP,Tdap,and Td Vaccines (8 - Td or Tdap) 03/31/2031 03/31/2021, 08/23/2008, 02/08/1999, Additional history exists RSV Vaccine (60+ years old a nd patients) (1 - 1-dose 75+ series) 02/09/2059 Pneumococcal Vaccine: Pediat phillip (0-5 Years) and At-Risk Patients (6-50 Years) Completed 02/11/2023, 07/05/2016 Hepatitis C Screening Completed 11/15/2023, 024 Procedures * Due to [place] state law, this organization might not be sharing negative HIV tests. Procedure Name Priority Date/Time Associated Diagnosis Comments COMPREHENSIVE METABOLIC PANEL Routine 11/23/2023 5:39 AM EDT HEPATITIS PANEL, ACUTE STAT 11:18 AM EDT from Last 3 Months or Most Recently Relevant to Health Maintenance Results * Due to [place] [employer] law, this organization might not be sharing negative HIV tests. * (ABNORMAL) Comprehensive metabolic panel (11/23/2023 5:39 AM EDT) NA 140 135 - 145 mmol/L 11/23/2023 6:15 AM EDT [facility] K 4.0 3.5 - 5.3 mmol/L 11/23/2023 6:15 AM EDT [facility] Cl 104 98 - 107 mmol/L 11/23/2023 6:15 AM EDT [facility] CO2 26 22 - 32 mmol/L 11/23/2023 6:15 AM EDT [facility] Anion Gap 10 5 - 15 11/23/2023 6:15 AM EDT [facility] Glucose 108(H) 65 - 99 mg/dL 11/23/2023 6:15 AM EDT [facility] Creatinine 0.50 0.50 - 1.20 mg/dL 11/23/2023 6:15 AM EDT [facility] Calcium 8.5(L) 8.6 - 10.5 mg/dL 11/23/2023 6:15 AM EDT [facility] Total Protein 7.3 6.0 - 8.0 g/dL 11/23/2023 6:15 AM EDT [facility] Albumin 3.4(L) 3.5 - 5.2 g/dL 11/23/2023 6:15 AM EDT [facility] Bilirubin, Total 0.4 0.2 - 1.2 mg/dL 11/23/2023 6:15 AM EDT [facility] Alkaline Phosphatase 390(H) 35 - 129 U/L 11/23/2023 6:15 AM EDT [facility] [facility] AST 50(H) 10 - 40 U/L 11/23/2023 6:15 AM EDT [facility] [facility] ALT 56(H) 10 - 40 U/L 11/23/2023 6:15 AM EDT [facility] [facility] BUN 4(L) 7 - 23 mg/dL 11/23/2023 6:15 AM EDT [facility] [facility] eGFR >90 >=60 mL/min/1. 73m2 11/23/2023 6:15 AM EDT [facility] Comment:The estimated glomer ular filtration rate (eGFR) is calculated using a new formula developed by the NKF-ASN task force to eliminate race-based correction factors. The new formula uses serum/plasma creatinine, age, and gender to determine eGFR. A value below 60mls/min might indicate kidney disease and will be flagged. For additional information, see Vasquez et al, Am J Kidney Dis. 2021;79(2):268- 288, A Unifying Approach for GFR estimation: Recommendations of the NKF-ASN Task Force on Reassessing the Inclusion of Race in Diagnosing Kidney Disease . Globulin, Total 3.9 2.1 - 4.2 g/dL 11/23/2023 6:15 AM EDT [facility] A/G Ratio 0.9(L) 1.5 - 3.0 11/23/2023 6:15 AM EDT [facility] [employer] [facility] Blood Structure of peripheral vein / Unknown Venipuncture / Unknown 11/23/2023 5:39 AM EDT 11/23/2023 5:46 AM EDT us Fritz Nick MD LAB BLOOD ORDERABLES Final Re sult [facility] [address] [place] [address], * Hepatitis Panel, Acute (11/15/2023 11:18 AM EDT) Hepatitis A IgM NON-REACT LESLIE NON-REACT LESLIE 11/16/2023 4:53 AM EDT [facility] Hepatitis B Surface Antigen NON-REACT LESLIE NON-REACT LESLIE 11/16/2023 4:53 AM EDT [facility] Hepatitis B Core Antibody NON-REACT LESLIE NON-REACT LESLIE 11/16/2023 4:53 AM EDT [facility] Hepatitis C Antibody NON-REACT LESLIE NON-REACT LESLIE 11/16/2023 4:53 AM EDT [facility] Comment: HCV antibody was non-reactive. There is no laboratory evidence of HCV infection. In most cases, no further action is required. However, if recent HCV exposure is suspected, a test for HCV RNA (test code 43523) is suggested. For additional information please refer to http://[employer].BookingNest/faq/YVF71r5 (This link is being provided for informational/ educational purposes only.) For additional information, please refer to http://[employer].Book[employer]est/faq/UZX793 (This link is being provided for informational/ educational purposes only.) Blood Structure of peripheral vein / Unknown Venipuncture / Unknown 11/15/2023 11:18 AM EDT 11/15/2023 11:22 AM EDT Narrative [facility] - 11/16/2023 4:53 AM EDT [facility] Received Date: us Fritz Nick MD LAB BLOOD ORDERABLES Final Re sult [facility] [address] [address], [place] [address], [place] [phone] [facility] [address], [place] [address], [place] [phone] from Last 3 Months or Most Recently Relevant to Health Maintenance Insurance [facility] MEDICARE Advance Directives * Full Code (Latest Code Status on File) Date Activated Date Inactivated Comments 11/15/2023 1:31 AM 11/24/2023 6:18 AM Care Teams Airport Planner Relationship Specialty Start Date End Date Jake Red MD [address] [place] [address] PCP - General Internal Medicine 11/28/23
--- OUTSIDE RECORDS SUMMARY | 2024-10-13 17:56 | XMS_ITS | Patient Health Record ---
Author Organization [facility] Address [address] [place], [place] [id number] Care Team Providers Care Cra Officer Name Role Phone Jake Red Primary Care Provider Unavail able Devaughn Urban Unavailable [phone] Reason For Referral No Information Medications Medication SIG (Take, Route, Fr equency, Duration) Notes Start Date End Date Status amitriptyline 25 mg 1 tab(s) orally once a day (at bedtime); Duration: 30 day(s) 06/20/2009 Ac tive PriLOSEC OTC Activ e albuterol Active Vicodin 500 mg-5 mg 1 tab(s) orally 4-6 hours; Duration: prn pain 06/03/2009 Active predniSONE Active Zantac 150 Active Advair Diskus Acti ve Vicodin Active Singulair Active Problems Problem Type SNOMED Code ICD Code Onset Dates Problem Status W/U Status Risk Notes Problem Reflex sympathetic dystrophy of upper limb (781251955) Reflex sympathetic dystrophy of upper limb (337.21) Active confirmed Plan Of Treatment Pending Test Test Name Order Date Hand, left (AP,LAT,OBL) 06/03/2009 Insurance Providers Payer Name Payer Address Payer Phone Subscriber Number Group Number Insured Name Patient Relationship to Insured Coverage Start Date Coverage End Date BLUE [employer] HMO BLUE [address] [place] [address] [id number] Kristen Ferrer Child - Insured has Financial Responsibility Medical (General) History Medical History History ICD Code Asthma COPD
--- OUTSIDE RECORDS SUMMARY | 2024-10-13 17:56 | XMS_ITS | Clinical Summary ---
Author Organization [facility] Address [address] [place] [address] Care Team Providers Care Veneer Sawyer Name Role Phone Jake Red MD Primary Care Provider [phone] Luis Alfredo Eli Unavailable [phone] Patti Frost Unavailable Norma Mckoy Unavailable [phone] Pako Courtney Unavailable [phone] Allergies Active Allergy Reactions Criticality Noted Date Comments Aspirin 03/03/2013 Burning sensation Bee Venom 06/17/2014 Cephalosporins Maculopapular Rash 03/28/2007 Food 06/17/2014 TREE NUTS Metoclopramide Other 06/09/2010 REGLAN(METOCLOPRAMIDE RESIN): Feeling of apprehension Peanuts 01/07/2006 Prochlorperazine Other 06/09/2010 COMPAZINE(PROCHLORPERAZINE MESYLATE): Feeling of apprehension Medications LISINOPRIL 2.5 MG Tab None Entered 01/19/2015 Active TIZANIDINE HCL 4 MG Tab None Entered 02/02/2015 Active CARVEDILOL 3.125 MG Tab None Entered 01/19/2015 Act nicholas Montelukast Sodium 10 MG Tab TAKE 1 TABLET BY MOUTH EVERY EVENING 30 Tab 5 04/05/2015 Active Active Problems Problem Noted Date Diagnosed Date Cardiomyopathy 02/16/2015 Anemia 10/29/2013 Pulmonary embolism 01/09/2013 Gastroparesis 11/01/2011 Abdominal pain 08/18/2010 Overview (02/19/2017): Colitis, Clostridium difficile 07/04/2010 Underweight 06/09/2010 History of ovarian cyst 06/09/2010 DVT of upper extremity (deep vein thrombosis) Gastroparesis 01/11/2009 Syncope and collapse 12/19/2006 Asthma Overview (01/21/2015): Irritable bowel syndrome Headache, migraine Esophageal reflux Hypogammaglobulinemia Resolved Problems Problem Noted Date Diagnosed Date Resolved Date DVT of upper extremity (deep vein thrombosis) 07/05/19 11 07/04/2010 Immunizations Immunization Administration Dates Next Due DTP 03/04/1989, 6,1984,06/17,1984 HIB (PRP-T) 12/08/1985 MMR 02/21/1995,07/01/1985 Meningococcal ACWY (Menactra) 07/14/2002 OPV, Trivalent (Admin Before 05/27/2015) 0 03/04/1989,08/17/1985,1984,06/17,1984 PPD/TST (Tuberculin Skin Test) 02/11/1992 Td (adult), adsorbed 02/08/1999 Tdap - 08/23/2008 Family History Medical History Relation Name Comments Cancer (?Type) Brother 3 cancer in hi s appendix at 25yo Seizures Father estranged from father Diabetes Maternal grandmother Diabete s - Type II Hypertension Maternal grandmother Relation Name Status Comments Brother 1 Alive Brother 2 Alive 1/2 brother Brother 3 Father Alive unknown Maternal grandmother Mother Alive Sister 1 Alive 1/2 sister Sister 2 Alive 1/2 sister Social History Tobacco Use Types Packs/Day Years Used Date Smoking Tobacco: Never Alcohol Use Standard Drinks/Week Comments No 0 (1 standard drink = 0.6 oz pur e alcohol) Comments Unknown Sex and Gender Information Value Date Recorded Sex Assigned at Not on file Legal Sex Female 8:30 PM EST Gender Identity Not on file Sexual Orientation Not on file 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 Not on file Not on file Last Filed Vital Signs Vital Sign Reading Time Taken Comments Blood Pressure 100/72 02/16/2015 10:50 AM EST Pulse 114 02/16/2015 10:50 AM EST Temperature 36.9 C (98.5 F) 10/19/2014 9:40 AM EDT Respiratory Rate - - Oxygen Saturation 97% 02/16/2015 10: 50 AM EST Inhaled Oxygen Concentration - - Weight 50.3 kg (110 lb 12.8 oz) 02/16/2015 10:50 AM EST Height 172.7 cm (5' 8 ) 04/14/2013 9:27 AM EST patient reported Body Mass Index 16.85 04/14/2013 9:27 AM EST Plan of Treatment Health Maintenance Due Date Last Done Comments Hepatitis C Screening 1984 Hep B (1 of 3 - 19+ 3-dose series) 02/09/2003 Pap Smear 06/09/2013 06/09/2010, 12/26, 06/19/2006 DTaP/Tdap/Td (7 - Td or Tdap) 08/23/2018 08/23/2008, 02/08/1999, 03/04/1989, Additional history exists COVID-19 Vaccine ( season) 2023 Mammogram/Breast Imaging 2024 Influenza (#1) 2024 Zoster (Shingrix) (1 of 2) 02/09/2034 Hib Completed 12/08/1985 Meningococcal ACWY Completed 07/14/2002 HPV Vaccine (No Doses Required) Completed Hep A Aged Out No longer eligi ble based on patient's age to complete this topic Pneumococcal Aged Out No longer eligi ble based on patient's age to complete this topic Procedures * Due to [place] law, this organization might not be sharing negative HIV tests. Procedure Name Priority Date/Time Associated Diagnosis Comments SUREPATH PAP REFLEX TO HPV Routine 06/09/2010 3:32 PM EDT from Last 3 Months or Most Recently Relevant to Health Maintenance Results * Due to [place] law, this organization might not be sharing negative HIV tests. * SUREPATH PAP REFLEX TO HPV (06/09/2010 3:32 PM EDT) PAP Report Status FINAL 011 12:46 PM EDT [facility] Clinical Information none given 06/16/2010 12:46 PM EDT [facility] LMP [id number] 06/16/2010 12:46 PM EDT [facility] Previous PAP NONE GIVEN 06/16/2010 12:46 PM EDT [facility] Previous BX NONE GIVEN 06/16/2010 12:46 PM EDT [facility] Geniturinary Source SEE NOTE 06/16 12:46 PM EDT [facility] Statement Of Adequacy PAP Smear SEE NOTE 06/16/2010 12:46 PM EDT [facility] Comment: Satisfactory for evaluation. Endocervical/transformation zone component present. Interpretation/Resul t SEE NOTE 06/16/2010 12:46 PM EDT [facility] Comment Thin-Prep SEE NOTE 011 12:46 PM EDT [facility] Comment: This Pap test has been evaluated with computer assisted technology. Based on the cytology result, reflex High Risk HPV DNA testing was not performed. Application Internship SEE NOTE 06/17/19 11 12:46 PM EDT [facility] PAP Review Application Internship SEE NOTE 06/16/2010 12:46 PM EDT [facility] 06/09/2010 3:32 PM EDT 06/09/2010 3:32 PM EDT Narrative [facility] - 06/16/2010 12:00 AM EDT Testing performed at: [facility] [address], [address], [employer]: MINDI BEARDEN MD, DIRECTOR Testing performed at: [facility] [place] [address], [address] [place] [address], Formerly [facility], [employer]: MATILDE SILVA MD Is patient high risk for cervical/vaginal cancer? (y/n) [facility] ONLY->NO NOTE: ALL info above required by CLIA. If not supplied, you will be asked to resubmit the order. 5 - High Risk Category none 4-Other history: none. -as noted. 3-Menstrual History: Patient's last menstrual period was 05/29/2010.; if LMP noted, hit Enter now; otherwise select any other appropriate line(s): 2-Specimen source: cervix and endocervix. 1-Anticipated interval to next Pap: 1 yr us Jessica Roca MD PATHOLOGY Final Result [facility] from Last 3 Months or Most Recently Relevant to Health Maintenance Insurance MEDICAID MEDICARE PART B Care Teams Veneer Sawyer Relationship Specialty Start Date End Date Jake Red MD PCP - General 02/12/14 Luis Alfredo Eli [facility] [address] [facility] [address] [place] [address] Allergy 08/21/10 Patti Frost [facility] Dept of Anesthesology [address] [facility] [address] [place] [address] Anesthesiology 08/21/10 Norma Mckoy [address] [place] [address] Hematology 08/21/10 Pako Courtney [address] [place] [address] Infectious Diseases 08/21/10 Denis Zavala Division of Gastroenterology [address] [address] Gastroenterology 09/26/10
--- OUTSIDE RECORDS SUMMARY | 2024-10-13 17:56 | XMS_ITS | Clinical Summary ---
Author Organization [facility] Address [address] [place] [address] [place] [address] Care Team Providers Care Integration Assistant Name Role Phone Jake Red Md Primary Care Provider Luis Alfredo Eli Unavailable [phone] Patti Frost Unavailable Pako Courtney Unavailable [phone] Norma Mckoy Unavailable Jake Red Md Unavailable [phone] Allergies Active Allergy Reactions Criticality Noted Date Comments Aspirin (Bulk) 03/03/2013 Burning sensation Cephalosporins Rash 03/28/2007 Prochlorperazine Feeling of apprehension 2010 Honeybee 06/17/2014 Peanuts 01/07/2006 Metoclopramide Feeling of apprehension 06/10/19 11 Tree Nuts 06/17/2014 Medications ZOFRAN ORAL None Entered Activ e PRILOSEC ORAL None Entered Act nicholas Hydromorphone, PF, (DILAUDID, PF,) 2 mg/mL Injection SolutionIndicati ons:Gastroparesi s 20 ml every 6 hours 0 2 Active budesonide-formo terol (SYMBICORT) 160-4.5 mcg/actuation Inhalation HFA Aerosol InhalerIndicatio ns:Bronchitis with asthma, acute Use 2 inhalations twice daily and rinse your mouth thoroughly afterward 1 Inhaler 5 4 Active mirtazapine (REMERON) 15 mg Oral tabletIndication s:Insomnia 1 by mouth once daily at bedtime 30 tablet 5 4 Active guaifenesin-code ine (GUAIFENESIN AC) 10-100 mg/5 mL Oral LiquidIndication s:Asthma with bronchitis Take 5-10 mL by mouth at bedtime as needed Careful driving 120 mL 0 4 Active scopolamine (TRANSDERM-SCOP) 1.5 mg Transdermal Patch 72 hr Apply 1 patch as instructed behind ear at least 4 hours before needed; replace every 3 days as needed 4 patch 2 4 Active albuterol (PROAIR HFA) 90 mcg/actuation Inhalation HFA Aerosol Inhaler Use 2 puffs as instructed every 4-6 hours as needed; rinse mouthpiece at least weekly 1 Inhaler 3 4 Active montelukast (SINGULAIR) 10 mg Oral tablet Take 1 tablet by mouth every evening 30 tablet 5 5 Active traMADol 50 mg Oral tablet Take 1 tablet by mouth three times daily as needed for pain. No more than 3 tablets per day 20 tablet 0 5 Active OTHER MEDICATION, , Glucometer test blood glucose 2 times daily DX- hypoglycemia 1 each 0 5 Active OTHER MEDICATION, , Lancets test blood glucose 2 times daily DX- hypoglycemia 100 each 1 5 Active OTHER MEDICATION, , Test strips test blood glucose 2 times daily DX- hypoglycemia 100 each 1 5 Active guaifenesin-code ine (GUAIFENESIN AC) 10-100 mg/5 mL Oral LiquidIndication s:Bronchitis with asthma, acute Take 5-10 mL by mouth as instructed every 4-6 hours as needed for cough 120 mL 0 5 Active cyclobenzaprine 10 mg Oral tabletIndication s:Left paraspinal back pain Take 0.5-1 tablets by mouth every 8 hours as needed for muscle spasms ; no more than 3 tablets per day 20 tablet 0 5 Active albuterol (VENTOLIN,PROVEN TIL) 2.5 mg /3 mL (0.083 %) Solution for Nebulization Use 1 ampule (3mL) every four to six hours as needed for asthma symptoms 180 vial 0 5 Active Active Problems Problem Noted Date Diagnosed Date Anemia 10/29/2013 Pulmonary embolism 01/09/2013 Gastroparesis 11/01/2011 Abdominal pain 08/18/2010 Colitis, Clostridium difficile 07/04/2010 History of ovarian cyst 06/09/2010 Underweight 06/09/2010 DVT of upper extremity (deep vein thrombosis) Gastroparesis 01/11/2009 Syncope and collapse 12/19/2006 Asthma Esophageal reflux Irritable bowel syndrome Headache, migraine Hypogammaglobulinemia Resolved Problems Problem Noted Date Diagnosed Date Resolved Date DVT of upper extremity (deep vein thrombosis) 07/05/19 11 07/04/2010 Immunizations Immunization Administration Dates Next Due DTP Vaccine 03/04/1989, 6,1984,06/17,1984 HFlu B Conj (PRP-T) 12/08/1985 MMR Vaccine 02/21/1995,07/01/1985 Meningococcal ACWY (Menactra ) Conjugate Vaccine 07/14/2002 OPV,Trivalent (Admin before 05/27/2015) ,08/17/1985,1984,06/17,1984 TB Test 02/11/1992 TD Vaccine (Adult) 02/08/1999,02/08/1999 TdaP 08/23/2008 Surgical History Surgery Date Site/Laterality Comments STRABISMUS SURG,ONE HORIZ MUSCLE COLONOSCOPY 11/29/04 Dr Castillo Medical History Medical History Date Comments Asthma singulair, symbi jarod. 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 amitriptylin 25 10/04. daily headaches. (tried flexeril and depakote 1000. Dr. Woodruff Hypogammaglobulinemia ([facility]) IVIG (Vivaglobin) once weekly. Dr. Tamayo. [facility] ADHD, predominantly inattentive type Anaphylaxis unknown allergen , needs Epipen. known peanut allergy. Dr. Becker Ovarian cyst DVT of upper extremity (deep vein thrombosis) ([facility]) 03/28/2010 from PICC line Gastroparesis 01/11/2009 TPN; Central benjy e required for nutrition Colitis, Clostridium difficile 07/04/2010 Insomnia remeron 15qhs Chronic abdominal pain 04/07 right lorri ed. 04/07 started dilaudid at [facility] pain clinic Cholecystitis 02/04 IV Abx and gallb ladder drain placed at [facility]. plan for CCY in 8 weeks Enterococcus UTI 02/04 Pulmonary embolism ([facility]) 01/09/2013 nany ateral. dx'd at [facility]. lovenox x 6 months Compression fracture of thor acic vertebra ([facility]) 01/07 T6-T8 Anemia unclear etiology . normal colonoscopy 10/08. 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 right subclavian at site of central line Family History Medical History Relation Comments Cancer Brother 3 cancer in his a ppendix at 25yo Seizures/convulsions Father estranged f rom father Diabetes - type II Maternal Grandmother Hypertension Maternal Grandmother Relation Status Comments Brother 1 Alive Brother 2 Alive 1/2 brother Brother 3 Father Alive unknown Maternal Grandmother Mother Alive Sister 1 Alive 1/2 sister Sister 2 Alive 1/2 sister Social History Tobacco Use Types Packs/Day Years Used Date Smoking Tobacco: Never Alcohol Use Standard Drinks/Week Comments No 0 (1 standard drink = 0.6 oz pur e alcohol) Comments No Sex and Gender Information Value Date Recorded Sex Assigned at Not on file Legal Sex Female 6:45 PM EDT Gender Identity Not on file Sexual Orientation Not on file 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 Not on file Not on file Not on file Obstetrics History Last Filed Vital Signs Vital Sign Reading Time Taken Comments Blood Pressure 106/72 05/21/2014 11:58 AM EDT Pulse 119 05/21/2014 11:58 AM EDT Temperature 37 C (98.6 F) 05/21/2014 11:58 AM EDT Respiratory Rate - - Oxygen Saturation 97% 05/21/2014 11: 58 AM EDT Inhaled Oxygen Concentration - - Weight 49.9 kg (110 lb) 04/14/2013 9:27 AM EST patient reported Height 172.7 cm (5' 8 ) 04/14/2013 9:27 AM EST patient reported Body Mass Index 16.73 04/14/2013 9:27 AM EST Plan of Treatment Health Maintenance Due Date Last Done Comments OFFICE VISIT 1984 HEP B INITIAL SCREENING 02/09/2002 HIV SCREENING 02/09/2002 HEPATITIS B VACCINE (1 of 3 - 19+ 3-dose series) 02/09/2003 PAP: UPDATE W EDIT MODIFIERS 06/10/2010 06/09/2010, 01/11/2009, 06/19/2006 LIPID SCREENING 08/23/2013 08/23/2008, 01/07/2006 DTAP/TDAP/TD VACCINE (7 - Td or Tdap) 08/23/2018 08/23/2008, 02/08/1999, 02/08/1999, Additional history exists * GLUCOSE OR A1C SCREENING - Q3YR 02/09/2019 05/05/2010, 10/20/2009, 10/14/2009, Additional history exists HEP C SCREENING 2020 COVID-19 Vaccine ( season) 2023 MAMMOGRAPHY: 1 YR 2024 PERIODIC HEALTH REVIEW 2024 FLU SEASONAL (#1) 10/26/2024 HAEMOPHILUS INFLUENZA VACCINE Completed 12/08/1985 POLIO VACCINE Completed 03/04/1989, 07/27, 1984, Additional history exists RUBELLA Completed 02/21/1995, 07/01/1985 HEPATITIS A VACCINE Aged Out No longe r eligible based on patient's age to complete this topic PNEUMOCOCCAL VACCINE(S) Aged Out No l onger eligible based on patient's age to complete this topic RSV Vaccine //toddler Aged Out No longer eligible based on patient's age to complete this topic Procedures Procedure Name Priority Date/Time Associated Diagnosis Comments SUREPATH PAP REFLEX HPV MRNA E6/E7 (<30YRS) Routine 06/09/2010 3:32 PM EDT Routine gynecological examination BASIC METABOLIC PANEL W EGFR Routine 05/05/2010 9:57 AM EST Volume depletion LIPID PROFILE Routine 08/23/2008 12:00 AM EDT PHYSICAL EXAM from Last 3 Months or Most Recently Relevant to Health Maintenance Results * SUREPATH PAP REFLEX TO HPV (06/09/2010 3:32 PM EDT) REPORT STATUS FINAL [facility] CLINICAL INFORMATION none given [facility] [place] [address] [facility] PREV PAP NONE GIVEN [facility] PREV BX NONE GIVEN [facility] SOURCE SEE NOTE [facility] Comment:Cervix, Endocervix STATEMENT OF ADEQUACY SEE NOTE [facility] Comment: Satisfactory for evaluation. Endocervical/transformation zone component present. INTERPRETATION/RESUL T SEE NOTE [facility] Comment:Negative for intraep ithelial lesion or malignancy. COMMENT SEE NOTE [facility] Comment: This Pap test has been evaluated with computer assisted technology. Based on the cytology result, reflex High Risk HPV DNA testing was not performed. CENSUS CLERK SEE NOTE [facility] Comment:[facility] CT(ASCP) REVIEW CENSUS CLERK SEE NOTE [facility] Comment:[facility](ASCP) 06/09/2010 3:32 PM EDT 06/09/2010 3:32 PM EDT Narrative [facility] - 06/16/2010 12:46 PM EDT Testing performed at: [facility], [address], Reconditioning Associate: MINDI BEARDEN MD, DIRECTOR Testing performed at: [facility] [place] [address], [address] [place] [address], [address], Reconditioning Associate: MATILDE SILVA MD Is patient high risk for cervical/vaginal cancer? (y/n) [facility] ONLY->NO NOTE: ALL info above required by [...] next Pap: 1 yr us Jessica Roca GENERAL LAB Final Result [facility] [address] [place] [address] * BASIC METABOLIC PANEL W EGFR (05/05/2010 9:57 AM EST) GLUCOSE 79 65 - 99 mg/dL [facility] Comment: Fasting reference interval BUN 14 7 - 25 mg/dL [facility] CREATININE 0.72 0.57 - 1.03 mg/dL [facility] EGFR >60 > OR = 60 mL/min/1. 73m2 [facility] GFR >60 > OR = 60 mL/min/1. 73m2 [facility] BUN/CREATININE RATIO NOT APPLICABLE 6 - 22 (calc) [facility] SODIUM 139 135 - 146 mmol/L [facility] POTASSIUM 4.0 3.5 - 5.3 mmol/L [facility] CHLORIDE 103 98 - 110 mmol/L [facility] CARBON DIOXIDE 25 21 - 33 mmol/L [facility] CALCIUM 9.2 8.6 - 10.2 mg/dL [facility] 05/05/2010 9:57 AM EST 05/05/2010 9:57 AM EST Narrative [facility] - 05/06/2010 1:34 PM EST [facility] performed at: [facility], [address] [place] [address], [place], [address], Reconditioning Associate: NEMESIO JOHNSON MD Jake Red GENERAL LAB Final Resul t Performing Organization Address City/[facility] de Phone Number [facility] [address] [place] [phone] * (ABNORMAL) LIPID PROFILE (08/23/2008 12:00 AM EDT) [facility] CHOLESTEROL 178 100 - 199 MG/DL [facility] TRIGLYCERIDES 49 30 - 149 MG/DL [facility] HDL 84(H) 40 - 77 MG/DL [facility] LDL 84 62 - 130 MG/DL [facility] CHOL/HDL RATIO 2 0 - 5 CALC [facility] Venous Draw 08/23/2008 08/23/2008 8: 33 AM EDT Jake Red GENERAL LAB Final Resul t Performing Organization Address City/[facility]/ZIP Co de Phone Number [facility] [address] [place] [address] from Last 3 Months or Most Recently Relevant to Health Maintenance Care Teams Integration Assistant Relationship Specialty Start Date End Date Jake Red MD [facility] [address] [address] [address] PCP - General 12/17/05 Jake Red MD [address] [place] [address] PCP - Payer 12/26/12 Luis Alfredo Eli [address] [place] [address] Allergy 08/21/10 Patti Frost [address] [place] [address] Anesthesiology 08/21/10 Pako Courtney [address] [place] [address] Infectious Diseases 08/21/10 Norma Mckoy [address] [place] [address] Hematology 08/21/10 Denis Zavala Division of Gastroenterology [facility] [address] [address] Gastroenterology 09/26/10
--- OUTSIDE RECORDS SUMMARY | 2024-10-13 17:56 | XMS_ITS | Clinical Summary ---
Author Organization [facility] Address [facility] [place] [address] Care Team Providers Care Broadcast Producer Name Role Phone Jake Red MD Primary Care Provider Allergies Active Allergy Reactions Criticality Noted Date Comments Prochlorperazine Edisylate 3 Peanut 03/17/2012 Metoclopramide Hcl 03/17/2012 Tree Nut 03/17/2012 Medications HYDROMORPHONE HCL (DILAUDID MISC) 20 mLs by Misc.(Non-D rug; Combo Route) route. Active HYDROMORPHONE HCL (DILAUDID MISC) 12 mg by Misc.(Non-D rug; Combo Route) route. Active methadone (METHADOSE) 10 mg/5 mL solution Take by mouth 3 times daily. Active ONDANSETRON HCL (ZOFRAN IV) Inject 2 mLs into the vein every 4 hours. Active PROMETHAZINE HCL (PHENERGAN INJ) Inject 1 mL into the vein every 4 hours. Active gabapentin (NEURONTIN) 400 mg capsule Take 400 mg by mouth 3 times daily. Active montelukast (SINGULAIR) 10 mg tablet Take 10 mg by mouth nightly. Active mirtazapine (REMERON) 15 mg tablet Take 15 mg by mouth nightly. Active LORazepam (ATIVAN) 1 mg tablet Take 1 mg by mouth 3 times daily. Active amitriptyline (ELAVIL) 50 mg tablet Take 50 mg by mouth nightly. Active metroNIDAZOLE (FLAGYL) 500 mg tablet Take 500 mg by mouth 3 times daily. Active Social History Tobacco Use Types Packs/Day Years Used Date Smoking Tobacco: Never Comments Unknown Sex and Gender Information Value Date Recorded Sex Assigned at Not on file Legal Sex Female 7:32 AM EST Gender Identity Not on file Sexual Orientation Not on file Last Filed Vital Signs Vital Sign Reading Time Taken Comments Blood Pressure 103/62 03/17/2012 3:19 PM EST Pulse 113 03/17/2012 3:19 PM EST Temperature - - Respiratory Rate - - Oxygen Saturation - - Inhaled Oxygen Concentration - - Weight 54.4 kg (120 lb) 03/17/2012 3:19 PM EST Height 172.7 cm (5' 8 ) 03/17/2012 3:19 PM EST Body Mass Index 18.25 03/17/2012 3:19 PM EST Plan of Treatment Health Maintenance Due Date Last Done Comments HIV screen 02/09/2002 Hepatitis C Screening 02/09/2002 Hepatitis B vaccine (0-59 yrs) and Risk (1) 02/09/2003 Tetanus/Diphtheria/Pertussis Vaccines (1 - Tdap) 02/09 HPV test 02/09/2014 PAP Smear 02/09/2014 Covid-19 Vaccine (1 - 2023- season) 2023 Breast Cancer Share Decision Needed 2024 Breast Cancer screening 2024 Influenza (Flu) vaccine (1 o f 1 - Influenza standard series) 10/26/2024 Care Teams Broadcast Producer Relationship Specialty Start Date End Date Jake Red MD [address] [facility] [place] [address] PCP - General 05/12/12
--- OUTSIDE RECORDS SUMMARY | 2024-10-13 17:56 | XMS_ITS | Clinical Summary ---
Author Organization [facility] Address [address] [address] Care Team Providers Care Line Installer Trolley Name Role Phone Jake Red MD Primary Care Provider [phone] Jake Red MD Unavailable [phone] Social History Tobacco Use Types Packs/Day Years Used Date Smoking Tobacco: Never Assessed Comments Unknown Sex and Gender Information Value Date Recorded Sex Assigned at Female 04/02/2021 12:59 PM EST Legal Sex Female 12:07 AM EST Gender Identity Not on file Sexual Orientation Not on file Plan of Treatment Not on file Care Teams Line Installer Trolley Relationship Specialty Start Date End Date Jake Red MD [address] [facility] [place] [address] PCP - General 03/31/21 Jake Red MD [address] [facility] [place] [address] 03/31/21
--- OUTSIDE RECORDS SUMMARY | 2024-10-13 17:56 | XMS_ITS | Clinical Summary ---
Author Organization [facility] Address [address] [place] [address] Care Team Providers Care Jailkeeper Name Role Phone Jake Red Primary Care Provider Sunita Guevara MD Unavailable [phone] Social History Tobacco Use Types Packs/Day Years Used Date Smoking Tobacco: Never Assessed Comments Unknown Sex and Gender Information Value Date Recorded Sex Assigned at Not on file Legal Sex Female 6:11 AM EST Gender Identity Not on file Sexual Orientation Not on file Plan of Treatment Not on file Care Teams Jailkeeper Relationship Specialty Start Date End Date Jake Red [address] [facility] [address] [place] [address] PCP - General 01/04/14 Sunita Guevara MD [address] [place] [address] Infectious Diseases 05/07/16
[2024-10-13 18:01] LABS: Imm Gran Abs Auto 0.01 X10*3/uL (0.00-0.03); Imm Gran Pct Auto 0.3 % (0.0-0.4); Lymphocytes Absolute Auto 0.8 X10*3/uL (1.2-4.9); Mean Corpuscular HGB Conc 33.5 g/dl (31.0-35.0); Mean Corpuscular Hemoglobin 32.2 pg (27.0-33.0); Mean Corpuscular Volume 96.3 fL (80.0-98.0); NRBC Abs Auto 0.000 X10*3/uL (0.0-0.012); NRBC Pct Auto 0.0 /100WBC (0.0-0.2); Platelet Count 202 X10*3/uL (160-400); Red Blood Count 2.14 X10*6/uL (4.20-5.50); White Blood Count 2.9 X10*3/uL (4.8-10.8)
[2024-10-13 18:32] LABS: Hematocrit 20.6 % (37.0-47.0); Hemoglobin 6.9 g/dl (12.0-16.0)
[2024-10-13 19:16] LABS: Alanine Aminotransferase 20 U/L (0-31); Albumin Level 2.9 g/dL (3.5-5.0); Alkaline Phosphatase 268 U/L (39-117); Anion Gap 14 (12-20); Aspartate Amino Transferase 29 U/L (5-31); Blood Urea Nitrogen 21 mg/dL (9-16); Calcium 7.6 mg/dL (8.4-10.2); Carbon Dioxide 19 mmol/L (22-29); Chloride 111 mmol/L (96-108); Estimated Glomerular Filt Rate 59; Magnesium 1.6 mg/dL (1.6-2.6); Potassium 3.5 mmol/L (3.3-5.1); Sodium 140 mmol/L (135-145); Total Protein 6.1 g/dL (6.5-8.0); Triglycerides 79 mg/dL (<150)
== END 2024-10-13 17:38 | disposition home or self-care (01) ==
LOC: HO.LNP 17:37
PROVIDERS: Visit Provider Registered Nurse
DX: T80.219A Unspecified infection due to central venous catheter, initial encounter (principal); B96.89 Other specified bacterial agents as the cause of diseases classified elsewhere; I39 Endocarditis and heart valve disorders in diseases classified elsewhere; D83.9 Common variable immunodeficiency, unspecified; Z13.6 Encounter for screening for cardiovascular disorders
CPT/HCPCS: 80053; 82248; 83735; 84100; 84478; 85025; 85652; 86140